=== PATIENT | male | born 2000 | race Caucasian/White ===

== ENCOUNTER 2021-02-11 02:35 | Emergency (ER) | payer OTHER, SELFPAY ==
[2021-02-11 03:22] LABS: Absolute Lymphocytes (CBC) 1.4 K/uL (0.7-4.9); Basophils % 0.3 % (0-1.3); Hematocrit 43.9 % (39.6-49.0); Lymphocytes % 20.5 % (15.3-44.8); MPV 7.9 fL (7.6-11.3); RBC Red Blood Cell Count 4.73 M/uL (4.33-5.43)
[2021-02-11 03:27] LABS: Protime INR 1.09
[2021-02-11] MEDS ORDERED: ONDANSETRON 4 MG/2 ML VIAL ONE (03:38)
[2021-02-11] MEDS ORDERED: THIAMINE 200 MG/2 ML INJ ONE (03:38)
[2021-02-11] MEDS ORDERED: MORPHINE 4 MG/ML SYR ONE (03:38)
[2021-02-11] MEDS ORDERED: NA CHLORIDE 0.9% 1,000 ML ONE ×2 (03:39→03:47)
[2021-02-11] MEDS ORDERED: FAMOTIDINE 20 MG/2 ML VIAL IV ONE (03:39)
[2021-02-11 03:45] LABS: ALT/SGPT 29 U/L (12-78); Albumin 4.6 g/dL (3.4-5.0); Alkaline Phosphatase 68 U/L (45-117); BUN Blood Urea Nitrogen 7 mg/dL (7-18); Bicarbonate 20 mmol/L (21-32); Bilirubin Direct 0.2 mg/dL (0-0.2); Bilirubin Total 0.6 mg/dL (0.2-1.0); Glucose Level 114 mg/dL (74-106); Protein, Total 7.8 g/dL (6.4-8.2); Sodium Level 139 mmol/L (136-145)
[2021-02-11 03:47] LABS: AST/SGOT 25 U/L (15-37); Potassium 3.8 mmol/L (3.5-5.1)
--- NOTE | 2021-02-11 04:22 | EDPHYS ---
Physician Documentation [facility] Name: Jay Oconnor Age: 20 yrs Sex: Male : 2000 Arrival Date: 02/11/2021 Time: 02:39 Bed 20 Private MD: ED Physician Albert Spears HPI: 02/11 03:05 This 20 yrs old Male presents to ER via EMS with complaints of abd pain after cynthia drinking, now clear vomiting. 03:05 The patient presents with abdominal pain in the upper abdomen. Onset: The cynthia symptoms/episode began/occurred last night. The symptoms do not radiate. Associated signs and symptoms: Pertinent positives: nausea and vomiting, Pertinent negatives: diarrhea, dysuria, hematuria, shortness of breath, vomiting blood. The symptoms are described as burning, constant. Modifying factors: The symptoms are alleviated by nothing, the symptoms are aggravated by nothing. Severity of pain: At its worst the pain was mild moderate in the emergency department the pain is unchanged. The patient has not experienced similar symptoms in the past. Historical: - Allergies: 02:54 No Known Allergies; lh3 - PMHx: 02:54 None; lh3 - PSHx: 02:54 None; lh3 - Immunization history:: pt states that he does not know. - Social history:: Smoking status: Patient reports the use of cigarette tobacco products, smokes one pack cigarettes per day. - Family history:: not pertinent. ROS: 03:05 Constitutional: Negative for fever, chills, and weight loss, Eyes: Negative for injury, cynthia pain, redness, and discharge, ENT: Negative for injury, pain, and discharge, Neck: Negative for injury, pain, and swelling, Cardiovascular: Negative for chest pain, palpitations, and edema, Respiratory: Negative for shortness of breath, cough, wheezing, and pleuritic chest pain, Back: Negative for injury and pain, : Negative for injury, bleeding, discharge, and swelling, MS/Extremity: Negative for injury and deformity, Skin: Negative for injury, rash, and discoloration, Neuro: Negative for headache, weakness, numbness, tingling, and seizure, Psych: Negative for depression, anxiety, suicide ideation, homicidal ideation, and hallucinations, Allergy/Immunology: Negative for hives, rash, and allergies, Endocrine: Negative for neck swelling, polydipsia, polyuria, polyphagia, and marked weight changes, Hematologic/Lymphatic: Negative for swollen nodes, abnormal bleeding, and unusual bruising. 03:05 Abdomen/GI: Positive for abdominal pain, nausea and vomiting, abdominal cramps. Exam: 03:05 Head/Face: Normocephalic, atraumatic. Eyes: Pupils equal round and reactive to light, cynthia extra-ocular motions intact. Lids and lashes normal. Conjunctiva and sclera are non-icteric and not injected. Cornea within normal limits. Periorbital areas with no swelling, redness, or edema. ENT: Nares patent. No nasal discharge, no septal abnormalities noted. Tympanic membranes are normal and external auditory canals are clear. Oropharynx with no redness, swelling, or masses, exudates, or evidence of obstruction, uvula midline. Mucous membranes moist. Neck: Trachea midline, no thyromegaly or masses palpated, and no cervical lymphadenopathy. Supple, full range of motion without nuchal rigidity, or vertebral point tenderness. No Meningismus. Chest/axilla: Normal chest wall appearance and motion. Nontender with no deformity. No lesions are appreciated. Cardiovascular: Regular rate and rhythm with a normal S1 and S2. No gallops, murmurs, or rubs. Normal PMI, no JVD. No pulse deficits. Respiratory: Lungs have equal breath sounds bilaterally, clear to auscultation and percussion. No rales, rhonchi or wheezes noted. No increased work of breathing, no retractions or nasal flaring. Back: No spinal tenderness. No costovertebral tenderness. Full range of motion. Male : Normal genitalia with no discharge or lesions. Skin: Warm, dry with normal turgor. Normal color with no rashes, no lesions, and no evidence of cellulitis. MS/ Extremity: Pulses equal, no cyanosis. Neurovascular intact. Full, normal range of motion. Neuro: Awake and alert, GCS 15, oriented to person, place, time, and situation. Cranial nerves II-XII grossly intact. Motor strength 5/5 in all extremities. Sensory grossly intact. Cerebellar exam normal. Normal gait. Psych: Awake, alert, with orientation to person, place and time. Behavior, mood, and affect are within normal limits. 03:05 Abdomen/GI: Inspection: abdomen appears normal, Bowel sounds: normal, Palpation: moderate abdominal tenderness, in the right upper quadrant and left upper quadrant, Liver: no appreciated palpable abnormalities, Hernia: not appreciated. 03:52 ECG was reviewed by the Attending Physician. [facility] Vital Signs: 02:50 BP 122 / 71; Pulse 72; Resp 18; Temp 97.8; Pulse Ox 99% on R/A; Weight 58.97 kg; Height lh3 5 ft. 9 in. (175.26 cm); 02:54 BP 110 / 87; Pulse 72; Resp 18; Pulse Ox 100% on R/A; lh3 04:38 BP 114 / 91; Pulse 88; Resp 18; Pulse Ox 96% on R/A; lh3 02:50 Body Mass Index 19.20 (58.97 kg, 175.26 cm) 3 MDM: 02:41 Patient medically screened. [facility] 03:08 Differential diagnosis: cholecystitis, Cholelithiasis, gastritis, gastroesophageal cynthia reflux disease, GI Bleed, non-specific abd pain, pancreatitis, Peptic Ulcer Disease, Peritonitis, urinary tract infection. Data reviewed: vital signs, nurses notes, lab test result(s), radiologic studies, CT scan. 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 on room air is 100 %. Test interpretation: by ED physician or midlevel provider: ECG, plain radiologic studies. Post IV fluid administration reassessment for Sepsis: Sepsis focused reassessment complete. Counseling: I had a detailed discussion with the patient and/or guardian regarding: the historical points, exam findings, and any diagnostic results supporting the discharge/admit diagnosis, lab results, radiology results, the need for outpatient follow up, for definitive care, 02/11 02:39 Order name: Acetaminophen [facility] 02/11 02:39 Order name: Basic Metabolic Panel [facility] 02/11 02:39 Order name: CBC with Diff [facility] 02/11 02:39 Order name: ETOH Level [facility] 02/11 02:39 Order name: Hepatic Function; Complete Time: 03:52 [facility] 02/11 02:39 Order name: PT-INR; Complete Time: 03:52 [facility] 02/11 02:39 Order name: Ptt, Activated; Complete Time: 03:52 [facility] 02/11 02:39 Order name: Salicylate; Complete Time: 03:52 [facility] 02/11 02:40 Order name: Acetaminophen Level; Complete Time: 03:52 EDMS 02/11 02:40 Order name: Basic Metabolic Panel; Complete Time: 03:52 EDNC 02/11 02:40 Order name: CBC with Automated Diff; Complete Time: 03:52 EDNC 02/11 02:40 Order name: Alcohol Serum/Plasma; Complete Time: 03:52 EDNC 02/11 03:04 Order name: CT Abd/Pelvis - IV Contrast Only [facility] 02/11 02:39 Order name: EKG; Complete Time: 02:40 [facility] 02/11 02:39 Order name: EKG - Nurse/Tech; Complete Time: 03:42 [facility] 02/11 02:39 Order name: IV Saline Lock; Complete Time: 03:42 [facility] 02/11 02:39 Order name: Labs collected and sent; Complete Time: 03:42 [facility] 02/11 02:39 Order name: Suicide Screening ([place]); Complete Time: 03:42 [facility] EC:52 Rate is 61 beats/min. Rhythm is regular. QRS [place] is Normal. CO interval is normal. QRS cynthia interval is normal. QT interval is normal. No Q waves. T waves are Normal. No ST changes noted. Clinical impression: NSR w/ Non-specific ST/T Changes and No evidence of ischemia. Interpreted by me. Reviewed by me. Administered Medications: 03:41 Drug: Zofran (Ondansetron) 4 mg Route: IVP; Site: right forearm; 3 04:40 Follow up: Response: No adverse reaction; Pain is decreased lh3 03:41 Drug: Thiamine 100 mg Route: IV; Rate: per protocol; Site: right forearm; lh3 04:40 Follow up: Response: No adverse reaction; IV Status: Completed infusion lh3 03:41 Drug: morphine 4 mg Route: IVP; Site: right forearm; lh3 04:40 Follow up: Response: No adverse reaction lh3 03:41 Drug: Zofran (Ondansetron) 4 mg Route: IVP; Site: right forearm; lh3 04:40 Follow up: Response: No adverse reaction lh3 03:41 Drug: Pepcid (famotidine) 20 mg Route: IVP; Site: right forearm; lh3 04:40 Follow up: Response: No adverse reaction 3 03:42 Drug: NS 0.9% 1000 ml Route: IV; Rate: 1 bolus; Site: right forearm; lh3 04:40 Follow up: Response: No adverse reaction; IV Status: Completed infusion lh3 Disposition Summary: 02/11/21 04:21 Discharge Ordered Location: Home cynthia Problem: new cynthia Symptoms: have improved cynthia Condition: Stable cynthia Diagnosis - Acute gastritis cynthia - Upper abdominal pain, unspecified cynthia - Vomiting cynthia - Alcoholic gastritis without bleeding cynthia Followup: cynthia - With: Private Physician - When: 2 - 3 days - Reason: Recheck today's complaints, Continuance of care, Re-evaluation by your physician Followup: cynthia - With: - When: 2 - 3 days - Reason: Recheck today's complaints, Re-evaluation by your physician Discharge Instructions: - Discharge Summary Sheet cynthia - Abdominal Pain, Adult cynthia - Gastritis, Adult cynthia - Gastritis, Adult, [id number] cynthia - Abdominal Pain, Adult, [id number] cynthia - Alcohol Use Disorder cynthia - Alcohol Abuse and Nutrition cynthia Forms: - Medication Reconciliation Form cynthia - Thank You Letter cynthia - Antibiotic Education cynthia - Prescription Opioid Use [facility] Prescriptions: - Pepcid 20 mg Oral Tablet - take 1 tablet by ORAL route every 12 hours for 15 days; 30 tablet; Refills: 0, [facility] Product Selection Permitted - Zofran 4 mg Oral Tablet - take 1 tablet by ORAL route every 12 hours As needed; 20 tablet; Refills: 0, [facility] Product Selection Permitted - dicyclomine 20 mg Oral Tablet - take 1 tablet by ORAL route 4 times per day; 28 tablet; Refills: 0, Product [facility] Selection Permitted Signatures: Dispatcher [employer] Albert Engle MD MD cha Hardee, Latisha, RN RN 3
--- NOTE | 2021-02-11 04:22 | ER ---
Nurse's Notes [facility] Name: Jay Oconnor Age: 20 yrs Sex: Male : 2000 Arrival Date: 02/11/2021 Time: 02:39 Bed 20 Private MD: Diagnosis: Acute gastritis;Upper abdominal pain, unspecified;Vomiting;Alcoholic gastritis without bleeding Presentation: 02/11 02:50 Chief complaint: Patient states: that he ate before drinking and shortly after drinking lh3 a [place] started to have N/V/Abdominal Pain. Pt also states that he is struggling to breath. EMS states: that patient had a Four [place] tonight and started to experience nausea, vomiting and abdominal pain after consuming. Coronavirus screen: Vaccine status: Patient reports being unvaccinated. Ebola Screen: No symptoms or risks identified at this time. 02:50 Method Of Arrival: EMS 3 02:50 Initial Sepsis Screen: Does the patient meet any 2 criteria? No. Patient's initial 3 sepsis screen is negative. Does the patient have a suspected source of infection? No. Patient's initial sepsis screen is negative. Risk Assessment: Do you want to hurt yourself or someone else? Patient reports no desire to harm self or others. Onset of symptoms was February 11, 2021. 02:50 Acuity: ANABELA 3 lh3 Triage Assessment: 02:54 General: Appears uncomfortable, Behavior is cooperative, appropriate for age, anxious. lh3 Pain: Complains of pain in abdomen. Historical: - Allergies: 02:54 No Known Allergies; lh3 - PMHx: 02:54 None; lh3 - PSHx: 02:54 None; lh3 - Immunization history:: pt states that he does not know. - Social history:: Smoking status: Patient reports the use of cigarette tobacco products, smokes one pack cigarettes per day. - Family history:: not pertinent. Screenin:57 Abuse screen: Denies threats or abuse. Nutritional screening: No deficits noted. lh3 Tuberculosis screening: No symptoms or risk factors identified. Fall Risk IV access (20 points). Assessment: 02:57 General: Appears uncomfortable, Behavior is cooperative, appropriate for age, anxious. lh3 Pain: Complains of pain in abdomen Also complains of nausea. 04:38 Reassessment: Patient appears in no apparent distress at this time. Patient and/or 3 family updated on plan of care and expected duration. Pain level reassessed. Patient is alert, oriented x 3, equal unlabored respirations, skin warm/dry/pink. Patient states feeling better. Vital Signs: 02:50 BP 122 / 71; Pulse 72; Resp 18; Temp 97.8; Pulse Ox 99% on R/A; Weight 58.97 kg; Height 3 5 ft. 9 in. (175.26 cm); 02:54 BP 110 / 87; Pulse 72; Resp 18; Pulse Ox 100% on R/A; lh3 04:38 BP 114 / 91; Pulse 88; Resp 18; Pulse Ox 96% on R/A; 3 02:50 Body Mass Index 19.20 (58.97 kg, 175.26 cm) [facility] ED Course: 02:39 Patient arrived in ED. cynthia 02:39 Albert Spears MD is Attending Physician. [facility] 02:50 Ashly Fox RN is Primary Nurse. [facility] 02:54 Triage completed. 3 02:54 Arm band placed on right wrist. Patient placed on a stretcher, on teletypesetter monitor, on 3 pulse oximetry. 02:57 Patient has correct armband on for positive identification. Bed in low position. Call [facility] light in reach. Side rails up X 1. Side rails up X2. Door closed. Warm blanket given. Verbal reassurance given. 02:57 No provider procedures requiring assistance completed. Inserted saline lock: 20 gauge lh3 in right forearm, using aseptic technique. 03:42 Acetaminophen Sent. 3 03:42 Basic Metabolic Panel Sent. 3 03:42 CBC with Diff Sent. 3 03:42 ETOH Level Sent. 3 04:12 CT Abd/Pelvis - IV Contrast Only In Process Unspecified. EDMS 04:21 Ashley Hardwick MD is Referral Physician. [facility] 05:00 IV discontinued, intact, bleeding controlled, No redness/swelling at site. Pressure 3 dressing applied. Administered Medications: 03:41 Drug: Zofran (Ondansetron) 4 mg Route: IVP; Site: right forearm; 3 04:40 Follow up: Response: No adverse reaction; Pain is decreased [facility] 03:41 Drug: Thiamine 100 mg Route: IV; Rate: per protocol; Site: right forearm; lh3 04:40 Follow up: Response: No adverse reaction; IV Status: Completed infusion lh3 03:41 Drug: morphine 4 mg Route: IVP; Site: right forearm; lh3 04:40 Follow up: Response: No adverse reaction lh3 03:41 Drug: Zofran (Ondansetron) 4 mg Route: IVP; Site: right forearm; lh3 04:40 Follow up: Response: No adverse reaction lh3 03:41 Drug: Pepcid (famotidine) 20 mg Route: IVP; Site: right forearm; lh3 04:40 Follow up: Response: No adverse reaction lh3 03:42 Drug: NS 0.9% 1000 ml Route: IV; Rate: 1 bolus; Site: right forearm; lh3 04:40 Follow up: Response: No adverse reaction; IV Status: Completed infusion 3 Outcome: 04:21 Discharge ordered by MD. marie 05:00 Discharged to home ambulatory. 3 05:00 Condition: good 05:00 Discharge instructions given to patient, Instructed on discharge instructions, medication usage, Demonstrated understanding of Prescriptions given X 3. 06:25 Patient left the ED. 3 Signatures: Dispatcher [employer] EDAlbert Ann MD MD cha Hardee, Latisha, RN RN 3
[2021-02-11 06:32] VITALS: TEMP 97.8
[2021-02-11 06:34] VITALS: BP 114/91; O2SAT 96
--- NOTE | 2021-02-11 11:04 | RAD REPORT ---
EXAM DESCRIPTION: CT - Abdomen Pelvis W Contrast - 02/11/2021 6:24 am COMPARISON: None. CLINICAL HISTORY: ABD PAIN TECHNIQUE: CT of the abdomen and pelvis was acquired with IV contrast material. Coronal and sagitt al reconstructions were obtained. Automated exposure control was utilized on this examination as a dose lowering technique. FINDINGS: Lung bases: Clear. Liver: Normal. Gallbladder and biliary: Normal gallbladder. Unremarkable biliary tree. Pancreas: Normal. Spleen: Normal. Adrenal glands: Normal adrenal glands. Kidneys: Normal kidneys Stomach and Small Bowel: The stomach and small bowel are normal. Urinary bladder: Normal. Prostate/Male Urogenital: Normal. Colon and Appendix: The colon is unremarkable. No evidence of appendicitis. Retroperitoneum and lymph nodes: Normal. Vascular: Unremarkable. Peritoneal cavity: Trace pelvic fluid is noted. Musculoskeletal and soft tissues: Soft tissues are unremarkable. No aggressive bone lesions. No com pression fracture. IMPRESSION: No acute intra-abdominal abnormality. Electronically signed by: Dewayne Maharaj MD 02/11/2021 4:38 AM CDT Due to temporary technical issues with the PACS/Fluency reporting system, reports are being signed by the in house radiologist without review as a courtesy to ensure prompt reporting. The interpreting r adiologist is fully responsible for the content of the report.
--- NOTE | 2021-02-11 16:37 | EKG ---
Test Date: 2021-02-11 Test Time: 03:32:17 Medication Aide: TRANG MEASUREMENT RESULTS: Intervals: Rate: 61 AL: 164 QRSD: 104 QT: 442 QTc: 444 [place]: P: 68 AL: 164 QRS: 65 T: 65 INTERPRETIVE STATEMENTS: Sinus rhythm with marked sinus arrhythmia Possible Lateral infarct, age undetermined Abnormal ECG Compared to ECG 02/11/2021 03:31:45 Sinus bradycardia no longer present Myocardial infarct finding still present Electronically Signed On 02-11-21 16:35:34 CDT by Ozzy Hugo
== END 2021-02-11 06:25 | disposition home or self-care (01) ==
LOC: ER 02:35
DX: K29.20 Alcoholic gastritis without bleeding (principal); R11.10 Vomiting, unspecified; F17.210 Nicotine dependence, cigarettes, uncomplicated
CPT/HCPCS: 36415; 74177; 80048; 80076; 80320; 80329; 85025; 85610; 85730; 93005; 96365; 96375; 99284; J2405; J3411; J7030; Q9967

== ENCOUNTER 2021-10-06 04:18 | Inpatient (IN) | payer SELFPAY ==
[2021-10-06 05:09] LABS: Absolute Lymphocytes (CBC) 2.1 K/uL (0.7-4.9); Lymphocytes % 28.8 % (15.3-44.8); RBC Red Blood Cell Count 4.46 M/uL (4.33-5.43)
[2021-10-06] MEDS ORDERED: MORPHINE 4 MG/ML SYR ONE (05:27)
[2021-10-06] MEDS ORDERED: PROMETHAZINE INJ 25 MG/ML AMP ONE (05:27)
[2021-10-06] MEDS ORDERED: NA CHLORIDE 0.9% 1,000 ML ONE ×2 (05:27→07:58)
[2021-10-06 05:41] LABS: Albumin 3.7 g/dL (3.4-5.0); Bilirubin Total 0.4 mg/dL (0.2-1.0); Potassium 3.7 mmol/L (3.5-5.1); Protein, Total 6.7 g/dL (6.4-8.2)
--- NOTE | 2021-10-06 08:22 | RAD REPORT ---
EXAM DESCRIPTION: US - Abdomen Exam Limited - 10/06/2021 7:49 am CLINICAL HISTORY: RUQ pain COMPARISON: Abdomen Pelvis W Contrast dated 10/06/2021 FINDINGS: Gallbladder size is normal with no stones or sludge identifiable within the lumen. Gallbla dder wall thickness is upper normal to slightly thickened. Small amount of pericholecystic fluid is p resent. No common duct stone or biliary tree dilatation identified. IMPRESSION: Gallbladder wall is upper normal is slightly thickened with pericholecystic fluid presen t. Biliary tree is unremarkable. No stones or sludge identifiable. Acalculous cholecystitis is possible in the acute clinical setting .
--- NOTE | 2021-10-06 08:28 | EDPHYS ---
Physician Documentation [facility] [place] Name: Jay cOonnor Age: 20 yrs Sex: Male : 2000 Arrival Date: 10/06/2021 Time: 04:21 Bed 18 Private MD: ED Physician Raleigh Moreira HPI: 10/06 05:22 This 20 yrs old Male presents to ER via EMS with complaints of Nausea.Vomiting. mh7 Abdominal Cramps. 05:22 The patient presents to the emergency department with nausea, that is moderate, mh7 vomiting, that is intermittent, described as clear fluid, diarrhea, that is intermittent, abdominal pain, of the umbilical area, described as crampy, intermittent, waxing and waning, and does not radiate. Onset: The symptoms/episode began/occurred this morning, at 03:30. Possible causes: bad food exposure, possibly bad restaurant food. The symptoms are aggravated by nothing. The symptoms are alleviated by nothing. Associated signs and symptoms: Pertinent negatives: anorexia, belching, constipation, dysuria, fever, flatulence, GI bleeding, hematuria. Severity of symptoms: At their worst the symptoms were moderate today, in the emergency department the symptoms have improved moderately. Historical: - Allergies: 04:26 No Known Allergies; ll3 - Home Meds: 04:26 None [Active]; ll3 - PMHx: 04:26 None; ll3 - PSHx: 04:26 None; ll3 - Immunization history:: Client reports having NOT received the Covid vaccine. - Social history:: Smoking status: Reported history of juuling and/or vaping. ROS: 05:22 Constitutional: Negative for fever, chills, and weight loss, Eyes: Negative for injury, mh7 pain, redness, and discharge, ENT: Negative for injury, pain, and discharge, Neck: Negative for injury, pain, and swelling, Cardiovascular: Negative for chest pain, palpitations, and edema, Respiratory: Negative for shortness of breath, cough, wheezing, and pleuritic chest pain, Back: Negative for injury and pain, : Negative for injury, bleeding, discharge, and swelling, MS/Extremity: Negative for injury and deformity, Skin: Negative for injury, rash, and discoloration, Neuro: Negative for headache, weakness, numbness, tingling, and seizure, Psych: Negative for depression, anxiety, suicide ideation, homicidal ideation, and hallucinations, Allergy/Immunology: Negative for hives, rash, and allergies, Endocrine: Negative for neck swelling, polydipsia, polyuria, polyphagia, and marked weight changes, Hematologic/Lymphatic: Negative for swollen nodes, abnormal bleeding, and unusual bruising. Exam: 05:22 Head/Face: Normocephalic, atraumatic. Eyes: Pupils equal round and reactive to light, mh7 extra-ocular motions intact. Lids and lashes normal. Conjunctiva and sclera are non-icteric and not injected. Cornea within normal limits. Periorbital areas with no swelling, redness, or edema. Neck: Trachea midline, no thyromegaly or masses palpated, and no cervical lymphadenopathy. Supple, full range of motion without nuchal rigidity, or vertebral point tenderness. No Meningismus. Chest/axilla: Normal chest wall appearance and motion. Nontender with no deformity. No lesions are appreciated. Cardiovascular: Regular rate and rhythm with a normal S1 and S2. No gallops, murmurs, or rubs. Normal PMI, no JVD. No pulse deficits. Respiratory: Lungs have equal breath sounds bilaterally, clear to auscultation and percussion. No rales, rhonchi or wheezes noted. No increased work of breathing, no retractions or nasal flaring. Back: No spinal tenderness. No costovertebral tenderness. Full range of motion. Skin: Warm, dry with normal turgor. Normal color with no rashes, no lesions, and no evidence of cellulitis. MS/ Extremity: Pulses equal, no cyanosis. Neurovascular intact. Full, normal range of motion. Neuro: Awake and alert, GCS 15, oriented to person, place, time, and situation. Cranial nerves II-XII grossly intact. Motor strength 5/5 in all extremities. Sensory grossly intact. Cerebellar exam normal. Normal gait. Psych: Awake, alert, with orientation to person, place and time. Behavior, mood, and affect are within normal limits. 05:22 Constitutional: The patient appears in no acute distress, alert, awake, uncomfortable. Vital Signs: 04:22 BP 128 / 80; Pulse 52; Resp 17; Temp 97.9(O); Pulse Ox 99% on R/A; Weight 58.97 kg (R); ll3 Height 5 ft. 10 in. (177.80 cm) (R); Pain 6/10; 06:00 BP 103 / 72; Pulse 62; Resp 18; Pulse Ox 99% on R/A; ll3 07:45 BP 107 / 69; Pulse 77; Resp 18; Pulse Ox 99% on R/A; ww 04:22 Body Mass Index 18.65 (58.97 kg, 177.80 cm) ll3 MDM: 07:07 Patient medically screened. rn 07:16 ED course: Signed out to me by Dr. Garnica at shift change, plan is to get u/s and dc rn home if normal. . 08:27 Differential diagnosis: Nonspecific abd pain, gastritis, cholecystitis, pancreatitis. rn Data reviewed: vital signs, nurses notes, lab test result(s), radiologic studies, CT scan, ultrasound, and as a result, I will admit patient. Counseling: I had a detailed discussion with the patient and/or guardian regarding: the historical points, exam findings, and any diagnostic results supporting the discharge/admit diagnosis, lab results, radiology results, the need for further work-up and treatment in the hospital. Response to treatment: the patient's symptoms have mildly improved after treatment, and as a result, I will admit patient. Admission orders: after a detailed discussion of the patient's condition and case, the admit orders are written by me. 10/06 04:39 Order name: CBC with Diff; Complete Time: 05:12 [facility] 10/06 04:39 Order name: CMP; Complete Time: 05:46 [facility] 10/06 04:39 Order name: Lipase; Complete Time: 05:46 [facility] 10/06 05:13 Order name: CT Abd/Pelvis - IV Contrast Only [facility] 10/06 08:37 Order name: SARS-COV-2 RT PCR (Document "Date of Onset" if Symptomatic) rn 10/06 12:43 Order name: SARS-COV-2 RT PCR [facility] 10/06 04:39 Order name: IV Saline Lock; Complete Time: 05:00 [facility] 10/06 07:06 Order name: US Abdomen Limited; Complete Time: 08:[address] [facility] 10/06 10:14 Order name: Diet Clear Liquid; Complete Time: 10:14 10/06 04:39 Order name: Labs collected and sent; Complete Time: 05:00 ll3 Administered Medications: 05:35 Drug: NS 0.9% 1000 ml Route: IV; Rate: 1000 ml; Site: left forearm; ll3 06:45 Follow up: Response: No adverse reaction; IV Status: Completed infusion; IV Intake: ll3 1000ml 05:38 Drug: Phenergan (promethazine) 12.5 mg Route: IVP; Site: left forearm; ll3 06:43 Follow up: Response: No adverse reaction ll3 05:45 Drug: morphine 4 mg Route: IVP; Infused Over: 4 mins; Site: left forearm; ll3 06:43 Follow up: Response: No adverse reaction ll3 08:04 Drug: NS 0.9% 1000 ml Route: IV; Rate: 1000 ml; Site: left forearm; ww 08:40 Drug: Zosyn (piperacillin-tazobactam) 3.375 grams Route: IVPB; Infused Over: 60 mins; ww Site: left forearm; Disposition Summary: 10/06/21 08:27 Hospitalization Ordered Hospitalization Status: Observation rn Provider: Jeremiah Le rn [facility] Condition: Stable rn Problem: new rn Symptoms: have improved rn Bed/Room Type: Standard rn Room Assignment: [facility](10/06/21 14:03) dw Diagnosis - Acute cholecystitis rn Forms: - Medication Reconciliation Form rn - SBAR form rn Signatures: Dispatcher [employer] Danielle Paulino RN RN Raleigh Serrato MD MD rn Holmes, Maurice, MD MD Lulu Stratton RN RN Senait Nunez RN RN ww Corrections: (The following items were deleted from the chart) 14:03 08:27 penny esparza
--- NOTE | 2021-10-06 08:28 | ER ---
Nurse's Notes [facility] Name: Jay Oconnor Age: 20 yrs Sex: Male : 2000 Arrival Date: 10/06/2021 Time: 04:21 Bed 18 Private MD: Diagnosis: Acute cholecystitis Presentation: 10/06 04:22 Chief complaint: EMS states: Toned out for nausea and vomiting, c/o cramping, chills, ll3 and nausea, states started around 0330. Coronavirus screen: Vaccine status: Patient reports being unvaccinated. chills, nausea, shaking with chills, vomiting. Ebola Screen: No symptoms or risks identified at this time. Initial Sepsis Screen: Does the patient meet any 2 criteria? No. Patient's initial sepsis screen is negative. Does the patient have a suspected source of infection? No. Patient's initial sepsis screen is negative. Risk Assessment: Do you want to hurt yourself or someone else? Patient reports no desire to harm self or others. Onset of symptoms was October 06, 2021 at 03:30. Care prior to arrival: Medication(s) given: Phenergan, 12.5 mg, zofran 4 mg, IV initiated. 20 GA, in the left forearm. Activity prior to arrival: vomiting. 04:22 Method Of Arrival: EMS: [facility] 04:22 Acuity: ANABELA 3 ll3 Triage Assessment: 04:26 General: Appears ill, Behavior is cooperative, Reports chills for 0-12 hours, feeling ll3 ill for 0-12 hours. Pain: Complains of pain in abdomen Quality of pain is described as crampy, Pain began 1 hour ago. Is continuous. Neuro: No deficits noted. Respiratory: Respiratory effort is even, unlabored, Respiratory pattern is regular, symmetrical. GI: Reports cramping, nausea, vomiting, since 0330. Derm: Skin is clammy. Historical: - Allergies: 04:26 No Known Allergies; ll3 - Home Meds: 04:26 None [Active]; ll3 - PMHx: 04:26 None; ll3 - PSHx: 04:26 None; ll3 - Immunization history:: Client reports having NOT received the Covid vaccine. - Social history:: Smoking status: Reported history of juuling and/or vaping. Screenin:28 Abuse screen: Denies threats or abuse. Nutritional screening: No deficits noted. ll3 Tuberculosis screening: No symptoms or risk factors identified. Fall Risk No fall in past 12 months (0 pts). No secondary diagnosis (0 pts). IV access (20 points). Ambulatory Aid- None/Bed Rest/Nurse Assist (0 pts). Gait- Normal/Bed Rest/Wheelchair (0 pts) Mental Status- Oriented to own ability (0 pts). Total Chavarria Fall Scale indicates No Risk (0-24 pts). Assessment: 04:28 General: See triage assessment. ll3 05:30 Reassessment: Patient and/or family updated on plan of care and expected duration. Pain ll3 level reassessed. Patient is alert, oriented x 3, equal unlabored respirations, skin warm/dry/pink. Patient states symptoms have not improved. 06:42 Reassessment: Patient and/or family updated on plan of care and expected duration. Pain ll3 level reassessed. Patient is alert, oriented x 3, equal unlabored respirations, skin warm/dry/pink. Patient states feeling better. Patient states symptoms have improved. 07:40 General: Appears comfortable, Behavior is cooperative. Pain: Complains of pain in ww abdomen. Neuro: Level of Consciousness is awake, alert, obeys commands, Oriented to person, place, time, situation, Moves all extremities. Speech is normal. Respiratory: Airway is patent Respiratory effort is even, unlabored, Respiratory pattern is regular, symmetrical. GI: Abdomen is non-distended, Reports upper abdominal pain. Derm: Skin is intact, is healthy with good turgor. Vital Signs: 04:22 BP 128 / 80; Pulse 52; Resp 17; Temp 97.9(O); Pulse Ox 99% on R/A; Weight 58.97 kg (R); ll3 Height 5 ft. 10 in. (177.80 cm) (R); Pain 6/10; 06:00 BP 103 / 72; Pulse 62; Resp 18; Pulse Ox 99% on R/A; ll3 07:45 BP 107 / 69; Pulse 77; Resp 18; Pulse Ox 99% on R/A; ww 04:22 Body Mass Index 18.65 (58.97 kg, 177.80 cm) ll3 ED Course: 04:21 Patient arrived in ED. ll3 04:22 Lulu Heart, NILESH is Primary Nurse. ll3 04:25 Triage completed. ll3 04:26 Arm band placed on Patient placed in an exam room, on a stretcher, on pulse oximetry. ll3 04:28 Patient has correct armband on for positive identification. Bed in low position. Call ll3 light in reach. Side rails up X 1. Adult w/ patient. 04:28 Maintain EMS IV. Dressing intact. Good blood return noted. Site clean \\T\\ dry. Gauge \\T\\ ll 3 site: 20 G LFA. 04:32 Mau Garnica MD is Attending Physician. 7 05:00 Initial lab(s) drawn, by mt, sent to lab. ll3 06:13 CT Abd/Pelvis - IV Contrast Only In Process Unspecified. EDMS 07:07 Attending Physician role handed off by Mau Garnica MD rn 07:07 Raleigh Moreira MD is Attending Physician. rn 07:51 US Abdomen Limited In Process Unspecified. EDMS 08:27 Jeremiah Le MD is Hospitalizing Provider. rn 09:06 SARS-COV-2 RT PCR (Document "Date of Onset" if Symptomatic) Sent. ww Administered Medications: 05:35 Drug: NS 0.9% 1000 ml Route: IV; Rate: 1000 ml; Site: left forearm; ll3 06:45 Follow up: Response: No adverse reaction; IV Status: Completed infusion; IV Intake: ll3 1000ml 05:38 Drug: Phenergan (promethazine) 12.5 mg Route: IVP; Site: left forearm; ll3 06:43 Follow up: Response: No adverse reaction ll3 05:45 Drug: morphine 4 mg Route: IVP; Infused Over: 4 mins; Site: left forearm; ll3 06:43 Follow up: Response: No adverse reaction ll3 08:04 Drug: NS 0.9% 1000 ml Route: IV; Rate: 1000 ml; Site: left forearm; ww 08:40 Drug: Zosyn (piperacillin-tazobactam) 3.375 grams Route: IVPB; Infused Over: 60 mins; ww Site: left forearm; Intake: 06:45 IV: 1000ml; Total: 1000ml. ll3 Outcome: 08:27 Decision to Hospitalize by Provider. rn 15:33 Patient left the ED. ww Signatures: Dispatcher [employer] EDRaleigh Villalba MD MD rn Holmes, Maurice, MD MD 7 Lulu Heart RN RN 3 Senait Rhodes RN RN ww Corrections: (The following items were deleted from the chart) 06:46 06:42 Reassessment: Patient and/or family updated on plan of care and expected ll3 duration. Pain level reassessed. Patient is alert, oriented x 3, equal unlabored respirations, skin warm/dry/pink. ll3
[2021-10-06] MEDS ORDERED: NA CHLORIDE 0.9% 100 ML ONE (08:39)
[2021-10-06] MEDS ORDERED: PIPERACIL/TAZO 3.375 GM VIAL IV ONE (08:39)
--- NOTE | 2021-10-06 09:36 | RAD REPORT ---
EXAM DESCRIPTION: CT - Abdomen Pelvis W Contrast - 10/06/2021 7:13 am CLINICAL HISTORY: 20 years Male Abdominal pain, acute, nonlocalized TECHNIQUE: Axial CT imaging of the abdomen and pelvis was performed following the administration of intravenous contrast.. Oral contrast was not administered. Sagittal and coronal reconstructed image s were then performed. The CT study is performed according to ALARA (as low as reasonably achievabl e) or ALARA/IMAGE GENTLY, with automatic adjustment of mA and/or kV according to patient size. Performed on: 10/06/2021 at 6:05 AM. COMPARISON: 02/11/2021 FINDINGS: Limitations: There is some streak artifact on the images related to the patient's arms rell ng down by his side during scanning. This does result in slight degradation of image quality. Lung bases: The lung bases are clear. Liver: The liver is normal in size and configuration. No focal hepatic abnormalities are identified. Liver attenuation is within normal limits. The portal veins are patent. Spleen: The spleen is normal in size. There is a heterogeneous appearance of the spleen during the ar terial phase images likely due to flow related phenomenon. The spleen is homogeneous and appearance o n the venous phase images. Gallbladder and bile duct: The gallbladder is well distended and unremarkable. There is evidence of pericholecystic fluid There is no biliary ductal dilatation. Pancreas: The pancreas is grossly normal in size and configuration. Adrenal Glands: The adrenal glands are normal in size and configuration. Kidneys: The kidneys are normal in size and configuration. There is no evidence of hydronephrosis. Th ere is no evidence of nephrolithiasis. No definite solid or cystic renal mass lesions are identified. Stomach: The stomach is grossly normal. There is no definite hiatal hernia. Bowel: The bowel gas pattern is non specific and non obstructive. Appendix: The appendix is normal. Free air: There is no evidence of free air. Free fluid: There is a trace amount of free fluid in the gallbladder fossa and pelvis. Vasculature: The aorta is normal in caliber and contour. The inferior vena cava is grossly unremarkab le. Lymphadenopathy: No pathologic lymphadenopathy is identified. Bladder: The bladder is well distended and smooth in contour. Reproductive: The prostate gland is grossly within normal limits. Bones: No acute osseous abnormalities are identified. Soft tissues: No acute soft tissue abnormalities are identified. IMPRESSION: 1. Pericholecystic fluid. Underlying acute gallbladder pathology is not excluded. Ther e is also a trace amount of free fluid in the pelvis. 2. Otherwise, no evidence of acute intra-abdominal or intrapelvic pathology. There is no evidence o f bowel obstruction or other acute bowel pathology. 3. There is some streak artifact on the images related to the patient's arms being down by his side during scanning. This does result in slight degradation of image quality. Electronically signed by: Vivi Pavon DO 10/06/2021 7:00 AM CDT Due to temporary technical issues with the PACS/Fluency reporting system, reports are being signed by the in house radiologists without review as a courtesy to insure prompt reporting. The interpreting radiologist is fully responsible for the content of the report.
[2021-10-06] MEDS: D5 0.45 NS 1,000 ML IV SCH ×2 (11:20→19:20)
[2021-10-06] MEDS ORDERED: ONDANSETRON 4 MG/2 ML VIAL IV PRN (11:20)
[2021-10-06] MEDS ORDERED: MORPHINE 4 MG/ML SYR IV PRN (11:20)
[2021-10-06 11:31] VITALS: BMI 17.7
[2021-10-06] MEDS: PIPER TAZO 3.375 GM in NA CHLORIDE 0.9% 100 ML IV SCH ×2 (12:00→22:14)
[2021-10-06] MEDS ORDERED: D5 0.45 NS 1,000 ML IV ONE (13:16)
--- NOTE | 2021-10-06 14:53 | HP ---
Date of Admission: 10/06/2021 Reason For Service: Acute cholecystitis, acalculous cholecystitis. History Of Present Illness: This is the case of a 20-year-old patient, who comes to us with nausea, vomiting and diarrhea after eating some hot dogs. Pain was significant to the point I was called for admission. He denies any trauma, any dysuria, hematuria, hematochezia, melena. [place]. Denies any family member sick at home. In fact, in an hour or two [facility] e the patient was evaluated by the ER and now the patient says that suddenly the symptoms improved. Allergies: NONE. Past Medical History: None. Medications: None. Past Surgical History: Surgeries none. Social History: He does Vape and also he says he probably consumes a lot of energy drink, sometimes 4 within an hour. He was advised the importance of smoking cessation, also the importance of not angel ing those energy drinks. Review of Systems: At this moment; no nausea, no vomiting. Some mild abdominal pain. The patient had diarrhea before c oming here. Physical Examination: General: The patient is awake, alert. HEENT: Pupils are equal and reactive. Anicteric. Neck: Supple. Chest: Clear. Heart: S1, S2. Abdomen: Soft and depressible. No guarding or rebound. No peritoneal signs. Mild epigastric tende rness, but no peritonitis. Extremities: Good capillary refill. Laboratory Data: Blood work shows WBC count of 7, hemoglobin of 13.4, potassium 3.7, total bilirubin of 0.4. CAT scan of the abdomen and pelvis and ultrasound interpreted by Dr. Lai as findings po ssibly consistent with acalculous cholecystitis. Assessment And Plan: This is the case of a 20-year-old patient with calculous cholecystitis. He is improving. He wants to try conservative treatment since just a few minutes ago the pain got relieved . We are going to trying to advance diet on him. He understands the options of laparoscopic possibl e open cholecystectomy with benefits, alternatives, and risks that were fully explained to him, altho ugh he wants to try conservative treatment and also improve his diet and social habits. We are going to start diet today. If he improves, then we will eventually send him home on antibiotics. If he g ets worse, then he has the options that we discussed with him that may include surgical options. SOPHIA Voice ID: [id number]
[2021-10-07] MEDS: D5 0.45 NS 1,000 ML IV SCH (03:20)
[2021-10-07] MEDS: PIPER TAZO 3.375 GM in NA CHLORIDE 0.9% 100 ML IV SCH (03:51)
[2021-10-07 04:17] VITALS: O2SAT 98
[2021-10-07 04:54] LABS: Absolute Lymphocytes (CBC) 1.9 K/uL (0.7-4.9); Hematocrit 38.8 % (39.6-49.0); Lymphocytes % 47.4 % (15.3-44.8); MPV 7.4 fL (7.6-11.3)
[2021-10-07 05:23] LABS: Albumin 3.2 g/dL (3.4-5.0); Bilirubin Direct 0.2 mg/dL (0-0.2); Bilirubin Total 0.6 mg/dL (0.2-1.0); Potassium 3.9 mmol/L (3.5-5.1); Protein, Total 5.9 g/dL (6.4-8.2)
[2021-10-07 08:20] VITALS: BP 121/69; TEMP 97.7
[2021-10-07] MEDS ORDERED: NICOTINE 21 MG/PAT TD SCH (09:00)
== END 2021-10-07 08:47 | disposition home or self-care (01) | DRG 446 ==
LOC: ER 04:18 → ERHOLD 08:32 → OBSVTOIN 08:32 → 2ND 15:14 → INTOOBSV 20:29 → OBSVTOIN 20:29
PROVIDERS: ADMIT Surgery; ATTEND Surgery
DX: K81.0 Acute cholecystitis (principal); F17.290 Nicotine dependence, other tobacco product, uncomplicated; Z20.822 Contact with and (suspected) exposure to COVID-19
CPT/HCPCS: 36415; 74177; 76705; 80048; 80053; 80076; 83690; 85025; 96361; 96374; 96375; 99284; J2543; J2550; J7030; J7799; Q9967; U0003

== ENCOUNTER 2023-10-10 20:02 | Emergency (ER) | payer OTHER, SELFPAY ==
--- OUTSIDE RECORDS SUMMARY | 2023-10-10 20:06 | XMS REPORT | Continuity of Care Document ---
Author Name Unknown Address [address] [facility]. [address] th[address] Address [address] [facility]. 1 495 [place] [address] Care Team Providers Care Sas Administrator Name Role Phone PUJA LADD Attending Clinician Unavailable RICHARD HODGES Attending Clinician UnavailELEN Back Attending Clinician Unavail le Payers Payer Name Policy Type Policy Number Effective Date Expirati on Date Source AETNA MP [facility] O [employer] 94 ON 9 [id number] 2023 00:00:00 Problems Condition Name Condition Details Condition Category Status Onset Date Resolution Date Last Treatment Date Treating Clinician Comments Source Mild major depression Mild major depression Disease Active 610 00:00: 00 Alexa lizarraga Tobacco use disorder Tobacco use disorder Disease Active 08-23 00:00: 00 Alexa lizarraga Social History Social Habit Start Date Stop Date Quantity Comments Source History of tobacco use Cigarette Smoker Alexa coffman - External Sexual orientation Bg Vela - External History of Social function 2023-08-24 00:00:00 2023-08-24 00:00:00 Alexa Vela - External Sex assigned at 2000 00:00:00 2000 00:00:00 Alexa Vela - External Smoking Status Start Date Stop Date Source Smokes tobacco daily 2023-08-24 00:00:00 Alexa Vela - External Medications Ordered Medication Name Filled Medication Name Start Date Stop Date Current Medication? Ordering Clinician Indication Dosage Frequency Signature (SIG) Comments Components Source Sertraline HCl 50 MG oral Tablet 10-09 00:00: 00 Yes [id number] 50mg Take 1 tablet (50 mg total) by mouth daily. Alexa Vela - Externa l Baclofen 10 MG oral Tablet 10-06 00:00: 00 Yes [id number] 10mg Take 1 tablet (10 mg total) by mouth nightly. Alexa Vela - Externa l Albuterol HFA 108 (90 Base) MCG/ACT IN AERS 08-23 00:00: 00 Yes [id number] 2{puff} Q.25D Inhale 2 puffs into the lungs every 6 hours as needed for wheezing. Alexa Nelson Externa l Immunizations Ordered Immunization Name Filled Immunization Name Date Status Comments Source DTaP Unspecified Unknown Completed Bruce lee Seybold - External DTaP Unspecified Unknown Completed Bruce lee Seybold - External DTaP Unspecified Unknown Completed Bruce lee Seybold - External DTaP Unspecified Unknown Completed Bruce lee Seybold - External DTaP Unspecified Unknown Completed Bruce lee Seybold - External Influenza, Seasonal, Injectable Unknown Completed Alexa Anthonyold - External Influenza, Seasonal, Injectable Unknown Completed Alexa ybold - External Influenza, Seasonal, Injectable Unknown Completed Alexa Anthonyybold - External Hepatitis B, Adolescent Or Pediatric Unknown Completed Alexa Anthonyybold - External Hepatitis B, Adolescent Or Pediatric Unknown Completed Alexa Anthonyybold - External Hepatitis B, Adolescent Or Pediatric Unknown Completed Alexa Anthonyybold - External Hepatitis B, Adolescent Or Pediatric Unknown Completed Alexa Anthonyybold - External HIB- Haemophilus Influenzae Type B Unknown Completed Alexa Lee bold - External HIB- Haemophilus Influenzae Type B Unknown Completed Alexa Lee bold - External HIB- Haemophilus Influenzae Type B Unknown Completed Alexa Lee bold - External MMR- Measles, Mumps, Rubella Unknown Completed Alexa Seybold - External MMR- Measles, Mumps, Rubella Unknown Completed Alexa Seybold - External IPV- Inactivated Polio Vaccine Unknown Completed Alexa Anthonyybold - External IPV- Inactivated Polio Vaccine Unknown Completed Alexa Anthonyybold - External IPV- Inactivated Polio Vaccine Unknown Completed Alexa Anthonyybold - External IPV- Inactivated Polio Vaccine Unknown Completed Alexa Seybold - External Varicella Vaccine Unknown Completed Zak onrelas Seybold - External DTaP Unspecified Unknown Completed Bruce anthonyy Seybold - External DTaP Unspecified Unknown Completed Bruce anthonyy Seybold - External DTaP Unspecified Unknown Completed Bruce anthonyy Seybold - External DTaP Unspecified Unknown Completed Bruce anthonyy Seybold - External DTaP Unspecified Unknown Completed Bruce lee Seybold - External Influenza, Seasonal, Injectable Unknown Completed Alexa Seybold - External Influenza, Seasonal, Injectable Unknown Completed Alexa Seybold - External Influenza, Seasonal, Injectable Unknown Completed Alexa Seybold - External Hepatitis B, Adolescent Or Pediatric Unknown Completed Alexa Seybold - External Hepatitis B, Adolescent Or Pediatric Unknown Completed Alexa Seybold - External Hepatitis B, Adolescent Or Pediatric Unknown Completed Alexa Seybold - External Hepatitis B, Adolescent Or Pediatric Unknown Completed Alexa Seybold - External HIB- Haemophilus Influenzae Type B Unknown Completed Alexa Lee bold - External HIB- Haemophilus Influenzae Type B Unknown Completed Alexa Lee bold - External HIB- Haemophilus Influenzae Type B Unknown Completed Alexa Lee bold - External MMR- Measles, Mumps, Rubella Unknown Completed Alexa Seybold - External MMR- Measles, Mumps, Rubella Unknown Completed Alexa Seybold - External IPV- Inactivated Polio Vaccine Unknown Completed Alexa Seybold - External IPV- Inactivated Polio Vaccine Unknown Completed Alexa Seybold - External IPV- Inactivated Polio Vaccine Unknown Completed Alexa Seybold - External IPV- Inactivated Polio Vaccine Unknown Completed Alexa Seybold - External Varicella Vaccine Unknown Completed Zak ornelas Seybold - External Vital Signs Vital Name Observation Time Observation Value Comments S ource Systolic blood pressure 2023-08-24 18:11:00 104 mm[Hg] Alexa Anthonyybo ld - External Diastolic blood pressure 2023-08-24 18:11:00 66 mm[Hg] Alexa Anthonyybo ld - External Heart rate 2023-08-24 18:11:00 86 /min Brucese steven Seybold - External Body temperature 2023-08-24 18:11:00 36.67 Leah Alexa Seybold - External Respiratory rate 2023-08-24 18:11:00 18 /min Alexa Seybold - External Body height 2023-08-24 18:11:00 174 cm Pat arlene Seybold - External Body weight 2023-08-24 18:11:00 55.339 kg Pat Crabtreeold - External BMI 2023-08-24 18:11:00 18.28 kg/m2 Pat Crabtreeold - External Oxygen saturation in Arterial blood by Pulse oximetry 2023-08-24 18:11:00 99 /min Alexa codie ld - External Plan of Care Planned Activity Planned Date Details Comments Source Encounters Start Date/Time End Date/Time Encounter Type Admission Type Attending [facility] Facility Care Department Encounter ID Source 2023-10-24 10:15:00 2023-10-24 10:15:00 Outpatient PUJA LADD [id number] [facility] 2023-10-10 09:00:00 2023-10-10 09:00:00 Outpatient RICHARD HODGES [id number] [facility] 2023-10-07 00:00:00 2023-10-07 00:00:00 Outpatient ELEN KWON [id number] [facility] 2023-10-05 00:00:00 2023-10-05 00:00:00 Outpatient PUJA LADD [id number] [facility] 2023-10-03 00:00:00 2023-10-03 00:00:00 Outpatient ELEN KWON [id number] [facility] 2023-10-02 00:00:00 2023-10-02 00:00:00 Outpatient PUJA LADD [id number] [facility] 2023-09-27 12:30:00 2023-09-27 12:30:00 Outpatient ALEXA LIU [id number] [facility] 2023-09-27 12:25:00 2023-09-27 12:25:00 Outpatient ALEXA LIU [id number] [facility] 2023-09-23 13:30:00 2023-09-23 13:30:00 Outpatient ELEN KWON [id number] [facility] 2023-09-23 00:00:00 2023-09-23 00:00:00 Outpatient ELEN KWON [id number] Alexa [facility] 2023-08-24 13:30:00 2023-08-24 13:30:00 Outpatient ELEN KWON ALEXA LIU [id number] Alexarosa Vela Notes Date/Time Note Provider Source 2023-08-24 13:14:43 [id number]:14:43F ormatting of this note is different from the original.Chief ComplaintPatient presents withNew PatientEstablish CareIs concerned about lungs heavy smoker. Has not been to the doctor in over 6 yearsDANG MaurerN [id number]:19:39Nurse [id number] for patient [id number] NoteLNNARRATIVEFormatted C-CDA narrative textKELOKLAHOMA CITY VETERANS ADMINISTRATION HOSPITAL – OKLAHOMA CITYFADYCincinnati Children's Hospital [facility]27[address] [facility].[id number] 2.3.15|[id number] [facility]"
[2023-10-10] MEDS ORDERED: AMOX/K CLAV 875 MG TAB ONE (20:18)
--- NOTE | 2023-10-10 20:18 | ER ---
Nurse's Notes [facility] Name: Jay Oconnor Age: 22 yrs Sex: Male : 2000 Arrival Date: 10/10/2023 Time: 20:02 Bed IW3 Private MD: Diagnosis: Dental caries, unspecified Presentation: 10/09 20:12 Chief complaint: Patient states: "I've had left sided jaw pain that started this mb9 morning. It's swollen and hurts". Coronavirus screen: At this time, the client does not indicate any symptoms associated with coronavirus-19. Ebola Screen: No symptoms or risks identified at this time. Initial Sepsis Screen: Does the patient meet any 2 criteria? No. Patient's initial sepsis screen is negative. Does the patient have a suspected source of infection? No. Patient's initial sepsis screen is negative. Risk Assessment: Do you want to hurt yourself or someone else? Patient reports no desire to harm self or others. Onset of symptoms was October 10, 2023. 20:12 Method Of Arrival: Ambulatory mb9 20:12 Acuity: ANABELA 4 mb9 Triage Assessment: 20:14 General: Appears in no apparent distress. Behavior is calm, cooperative. Pain: mb9 Complains of pain in jaw Quality of pain is described as throbbing. EENT: Poor dentition noted. Reports pain in jaw. Neuro: Plummer Agitation-Sedation Scale (RASS): 0 - Alert and Calm Level of Consciousness is awake, alert, obeys commands, Oriented to person, place, time, situation, Appropriate for age. Cardiovascular: Patient's skin is warm and dry. Respiratory: Airway is patent Respiratory effort is even, unlabored, Respiratory pattern is regular, symmetrical. GI: No signs and/or symptoms were reported involving the gastrointestinal system. : No signs and/or symptoms were reported regarding the genitourinary system. Derm: Skin is pink, warm \\T\\ dry. Musculoskeletal: Range of motion: intact in all extremities. Historical: - Allergies: 20:13 No Known Allergies; mb9 - Home Meds: 20:13 None [Active]; mb9 - PMHx: 20:13 None; mb9 - PSHx: 20:13 Tonsillectomy; mb9 - Immunization history:: Adult Immunizations up to date. - Infectious Disease History:: Denies. - Social history:: Smoking status: Patient denies any tobacco usage or history of. Screenin:15 [facility] ED Fall Risk Assessment (Adult) History of falling in the last 3 months, mb9 including since admission No falls in past 3 months (0 pts) Confusion or Disorientation No (0 pts) Intoxicated or Sedated No (0 pts) Impaired Gait No (0 pts) Mobility Assist Device Used No (0 pt) Altered Elimination No (0 pt) Score/Fall Risk Level 0 - 2 = Low Risk Oriented to surroundings, Maintained a safe environment, Educated pt \\T\\ family on fall prevention, incl call for assistance when getting out of bed. Abuse screen: Denies threats or abuse. Nutritional screening: No deficits noted. Tuberculosis screening: No symptoms or risk factors identified. Assessment: 20:14 Reassessment: see triage assessment. mb9 Vital Signs: 20:12 BP 135 / 79; Pulse 88; Resp 18; Temp 97.8; Pulse Ox 98% on R/A; Weight 72.57 kg; Height mb9 5 ft. 5 in. ; 20:12 Body Mass Index 26.63 (72.57 kg, 165.1 cm) mb9 ED Course: 20:06 Patient arrived in ED. ra3 20:07 Destini Esquivel [facility]-C [facility] kb 20:07 Agustin Olivares MD is Attending Physician. kb 20:12 Arm band placed on. mb9 20:13 Triage completed. mb9 20:15 Patient has correct armband on for positive identification. Adult w/ patient. Provided mb9 Education on: discharge. Client placed on continuous cardiac and pulse oximetry monitoring. NIBP monitoring applied. 20:15 Assist provider with bone marrow aspiration. Patient did not have IV access during this mb9 emergency room visit. 20:24 Corrine Villanueva RN is Primary Nurse. mb9 Administered Medications: 20:20 Drug: Hydrocodone-Acetaminophen PO (7.5 mg-325 mg) 1 tabs PO once Route: PO; mb9 20:20 Drug: Amoxicillin-Clavulanate PO 875 mg PO once Route: PO; mb9 Outcome: 20:17 Discharge ordered by . kb 20:24 Discharged to home ambulatory, mb9 20:24 Condition: stable 20:24 Discharge instructions given to patient, Instructed on discharge instructions, follow up and referral plans. Demonstrated understanding of instructions, follow-up care, medications, Prescriptions given X 1, 20:24 Patient left the ED. mb9 Signatures: Destini Esquivel FNP-C FNP-Ckb Breneman, Mary Beth RN RN mb9 Nathaly Mckeon ra3
--- NOTE | 2023-10-10 20:18 | EDPHYS ---
Physician Documentation [facility] Name: Jay Oconnor Age: 22 yrs Sex: Male : 2000 Arrival Date: 10/10/2023 Time: 20:02 Bed IW3 Private MD: ED Physician Agustin Olivares HPI: 10/09 20:15 This 22 yrs old Male presents to ER via Ambulatory with complaints of Jaw Pain, kb Toothache. 20:15 Pt is a 22 year old male who presents for toothache that started this morning and has kb gotten worse. Denies fever. States he signed up for dental insurance and plans to go as soon as it kicks in.. Historical: - Allergies: 20:13 No Known Allergies; mb9 - Home Meds: 20:13 None [Active]; mb9 - PMHx: 20:13 None; mb9 - PSHx: 20:13 Tonsillectomy; mb9 - Immunization history:: Adult Immunizations up to date. - Infectious Disease History:: Denies. - Social history:: Smoking status: Patient denies any tobacco usage or history of. ROS: 20:15 Constitutional: As per HPI kb Exam: 20:15 Constitutional: This is a well developed, well nourished patient who is awake, alert, kb and in no acute distress. Head/Face: Normocephalic, atraumatic. Cardiovascular: Regular rate Respiratory: Respirations even and unlabored. No increased work of breathing. Talking in full sentences Abdomen/GI: Soft, non-tender. No distention Skin: Warm, dry with normal turgor. Normal color. MS/ Extremity: Pulses equal, no cyanosis. Neurovascular intact. Full, normal range of motion. Neuro: Awake and alert, GCS 15, oriented to person, place, time, and situation. Moves all extremities. Normal gait. 20:15 ENT: Dental exam: dental caries, that is moderate, specifically in the lower left first molar (#19), gum swelling, that is moderate, specifically in the lower left first molar (#19), pain, Vital Signs: 20:12 BP 135 / 79; Pulse 88; Resp 18; Temp 97.8; Pulse Ox 98% on R/A; Weight 72.57 kg; Height mb9 5 ft. 5 in. ; 20:12 Body Mass Index 26.63 (72.57 kg, 165.1 cm) mb9 MDM: 20:07 Patient medically screened. kb 20:15 Data reviewed: vital signs, nurses notes. kb 20:16 Differential diagnosis: dental caries, gingivitis, dental abscess, pericoronitis. Test kb considered but Not performed: CT: ct considered but pt is afebrile, nontoxic in appearance without swelling to jaw and normal vital signs. CT would not change course of treatment. Counseling: I had a detailed discussion with the patient and/or guardian regarding the historical points, exam findings, and any diagnostic results supporting the discharge/admit diagnosis, the need for outpatient follow up, a dentist, to return to the emergency department if symptoms worsen or persist or if there are any questions or concerns that arise at home. Administered Medications: 20:20 Drug: Hydrocodone-Acetaminophen PO (7.5 mg-325 mg) 1 tabs PO once Route: PO; mb9 20:20 Drug: Amoxicillin-Clavulanate PO 875 mg PO once Route: PO; mb9 Disposition: 23:18 Co-signature as Attending Physician, Agustin Olivares MD I agree with the assessment sp4 and plan of care. I reviewed the patient's care provided by the Advanced Practice Provider and agree with the diagnosis and treatment plan. Disposition Summary: 10/10/23 20:17 Discharge Ordered Notes: Location: Home kb Condition: Stable kb Diagnosis - Dental caries, unspecified kb Followup: kb - With: Emergency Department - When: As needed - Reason: Worsening of condition Followup: kb - With: Private Physician - When: 2 - 3 days - Reason: Recheck today's complaints, Continuance of care, Re-evaluation by your physician Discharge Instructions: - Dental Caries, Adult kb - Dental Pain, [id number] kb - Dental Abscess, [id number] kb - Discharge Summary Sheet mb9 Forms: - Medication Reconciliation Form kb - Antibiotic Education kb - Prescription Opioid Use kb - Patient Portal Instructions kb - Leadership Thank You Letter kb - Work release form mb9 Prescriptions: - Augmentin 875-125 mg Oral Tablet - take 1 tablet ORAL route every 12 hours for 10 days; 20 tablet; Refills: 0, kb Product Selection Permitted Signatures: Destini Esquivel FNP-C FNP-Ckb Breneman, Mary Beth RN RN mb9 Agustin Olivares MD MD sp4
[2023-10-10] MEDS ORDERED: HYDROCODONE/APAP 7.5/325 MG TAB ONE (20:19)
[2023-10-10 20:30] VITALS: BP 135/79; TEMP 97.8; O2SAT 98
== END 2023-10-10 20:24 | disposition home or self-care (01) ==
LOC: ER 20:02
DX: K02.9 Dental caries, unspecified (principal)
CPT/HCPCS: 99284

== ENCOUNTER 2023-10-11 04:12 | Emergency (ER) | payer OTHER ==
--- OUTSIDE RECORDS SUMMARY | 2023-10-11 04:16 | XMS REPORT | Continuity of Care Document ---
Author Name Unknown Address [address] [place] [address] [address] thconnect Address [address] [facility] 1 495 [place] [address] Care Team Providers Care Compliance Field Technician Name Role Phone PUJA LADD Attending Clinician Unavailable RICHARD HODGES Attending Clinician UnavailELEN Back Attending Clinician Unavail le Payers Payer Name Policy Type Policy Number Effective Date Expirati on Date Source AETNA MP [facility] O GRAIN OILSEED OR PASTURE GROWER 94 ON 9 [id number] 2023 00:00:00 Problems Condition Name Condition Details [...] Smoker Alexa coffman - External Sexual orientation K bethany Vela - External History of Social function [...] MG oral Tablet 10-09 00:00: 00 Yes [id number] 50mg Take 1 tablet (50 mg total) by mouth daily. Alexa Vela - Externa l Baclofen 10 MG oral Tablet 10-06 00:00: 00 Yes [id number] 10mg Take 1 tablet (10 mg total) by mouth nightly. Alexa Nelson Externa l Albuterol HFA 108 (90 Base) MCG/ACT IN AERS 08-23 00:00: 00 Yes [id number] 2{puff} Q.25D Inhale 2 puffs into the lungs every 6 hours as needed for wheezing. Alexa Nelson Externa l Immunizations Ordered Immunization Name Filled Immunization Name Date Status Comments Source DTaP Unspecified Unknown Completed Bruce lee Seybold - External DTaP Unspecified Unknown Completed Bruce lee Seybold - External DTaP Unspecified Unknown Completed Bruce lee Seybold - External DTaP Unspecified Unknown Completed Bruce lee Seold - External DTaP Unspecified Unknown Completed Bruce lee Seybold - External Influenza, Seasonal, Injectable Unknown Completed [facility] Influ[facility], Seasonal, Injectable Unknown Completed Alexa Crabtreeold - External Influenza, Seasonal, Injectable Unknown Completed Alexa Millerybold - External Hepatitis B, Adolescent Or Pediatric Unknown Completed Alexa Millerybold - External Hepatitis B, Adolescent Or Pediatric Unknown Completed Alexa Millerybold - External Hepatitis B, Adolescent Or Pediatric Unknown Completed Alexa Millerybold - External Hepatitis B, Adolescent Or Pediatric Unknown Completed Alexa Crabtreeold - External HIB- Haemophilus Influenzae Type B Unknown Completed Alexa Lee bold - External HIB- Haemophilus Influenzae Type B Unknown Completed Alexa Lee bold - External HIB- Haemophilus Influenzae Type B Unknown Completed Alexa Lee bold - External MMR- Measles, Mumps, Rubella Unknown Completed Alexa Seybold - External MMR- Measles, Mumps, Rubella Unknown Completed Alexa Millerybold - External IPV- Inactivated Polio Vaccine Unknown Completed Alexa Millerybold - External IPV- Inactivated Polio Vaccine Unknown Completed Alexa Millerybold - External IPV- Inactivated Polio Vaccine Unknown Completed Alexa Millerybold - External IPV- Inactivated Polio Vaccine Unknown Completed Alexa Millerybold - External Varicella Vaccine Unknown Completed Zak ornelas Seybold - External DTaP Unspecified Unknown Completed [...] IPV- Inactivated Polio Vaccine Unknown Completed Alexa Millerybold - External IPV- Inactivated Polio Vaccine Unknown Completed Alexa Millerybold - External IPV- Inactivated Polio Vaccine Unknown Completed Alexa Seybold - External IPV- Inactivated Polio Vaccine Unknown Completed Alexa Seybold - External Varicella Vaccine Unknown Completed Zak ornelas Seybold - External Vital Signs Vital Name Observation Time Observation Value Comments S ource Systolic blood pressure 2023-08-24 18:11:00 104 mm[Hg] Alexa Millerybo ld - External Diastolic blood pressure 2023-08-24 18:11:00 66 mm[Hg] Alexa Millerybo ld - External Heart rate 2023-08-24 18:11:00 86 /min Brucese steven Seybold - External Body temperature 2023-08-24 18:11:00 36.67 Leah Alexa Seybold - External Respiratory rate 2023-08-24 18:11:00 18 /min Alexa Millerybold - External Body height 2023-08-24 18:11:00 174 cm Pat arlene Seybold - External Body weight 2023-08-24 18:11:00 55.339 kg Pat jacobs Seybold - External BMI 2023-08-24 18:11:00 18.28 kg/m2 Pat ey Seybold - External Oxygen saturation in Arterial blood by Pulse oximetry 2023-08-24 18:11:00 99 /min Alexa codie ld - External Encounters Start Date/Time End Date/Time Encounter Type Admission Type Attending [facility] Care Department Encounter ID Source 2023-10-24 10:15:00 2023-10-24 10:15:00 Outpatient PJUA LADD [id number] [facility] 2023-10-10 09:00:00 2023-10-10 09:00:00 Outpatient RICHARD HODGES [id number] [facility] 2023-10-07 00:00:00 2023-10-07 00:00:00 Outpatient ELEN KWON [id number] [facility] 2023-10-05 00:00:00 2023-10-05 00:00:00 [facility] [id number] [facility]:00:00 2023-10-03 00:00:00 [facility] [id number] [facility] 2023-10-02 00:00:00 2023-10-02 00:00:00 Outpatient PUJA LADD [id number] [facility] 2023-09-27 12:30:00 2023-09-27 12:30:00 [facility] [id number] [facility] 12:25:00 2023-09-27 12:25:00 Outpatient ALEXA LIU [id number] [facility] 2023-09-23 13:30:00 2023-09-23 13:30:00 Outpatient ELEN KWON [id number] [facility] 2023-09-23 00:00:00 2023-09-23 00:00:00 Outpatient ELEN KWON [id number] [facility] 2023-08-24 13:30:00 2023-08-24 13:30:00 Outpatient ELEN KWON ALEXA LIU [id number] Alexa Vela Notes Date/Time Note Provider Source 2023-08-24 13:14:43 [id number]:14:43F ormatting of this note is different from the original.Chief ComplaintPatient presents withNew PatientEstablish CareIs concerned about lungs heavy smoker. Has not been to the doctor in over 6 yearsDANG MaurerN [id number] [id number]:19:39Nurse [id number] for patient [id number] NoteLNNARRATIVEFormatted C-CDA narrative textKELALLIANCEHEALTH MADILL – MADILLEPThe Surgical Hospital at Southwoods2727 [facility].[id number]:[id number] 2.3.15|[id number]. [id number] [facility]"
[2023-10-11] MEDS ORDERED: DIAZEPAM 10 MG/2 ML INJ SYRINGE ONE (04:26)
[2023-10-11] MEDS ORDERED: ONDANSETRON 4 MG/2 ML VIAL ONE (04:26)
[2023-10-11] MEDS ORDERED: NA CHLORIDE 0.9% 1,000 ML ONE (04:27)
[2023-10-11] MEDS ORDERED: METOCLOPRAMIDE 10 MG/2mL INJ ONE (04:27)
[2023-10-11] MEDS ORDERED: KETOROLAC 30 MG/ML INJ ONE (04:27)
[2023-10-11 05:22] LABS: Albumin 4.7 g/dL (3.4-5.0); Albumin/Globulin Ratio 1.3 (1.1-1.8); Anion Gap 13.4 mEq/L (5.0-15.0); Bilirubin Total 1.6 mg/dL (0.2-1.0); Globulin 3.6 g/dL (2.3-3.5); Potassium 3.4 mEq/L (3.5-5.1); Protein, Total 8.3 g/dL (6.4-8.2)
[2023-10-11 05:42] LABS: Absolute Lymphocytes (CBC) 2.1 K/uL (0.7-4.9); Absolute Neutrophil 8.7 K/uL (1.8-8.0); Basophils % 0.2 % (0-1.3); Eosinophils % 0.2 % (0-4.4); Hematocrit 43.7 % (39.6-49.0); Hemoglobin 14.7 g/dL (13.6-17.9); Lymphocytes % 17.4 % (15.3-44.8); MCHC 33.7 g/dL (32.0-36.0); MCV 91.9 fL (80-100); MPV 8.1 fL (7.6-11.3); Monocytes % 8.8 % (3.3-12.3); Neutrophils % 73.4 % (41.7-73.7); Nucleated Red Blood Cells % 0.1 % (0-0); Platelets 255 thou/uL (152-406); RBC Red Blood Cell Count 4.76 M/uL (4.33-5.43); Red Cell Distribution Width 12.6 % (12.1-15.2)
--- NOTE | 2023-10-11 06:40 | ER ---
Nurse's Notes [facility] Name: Jay Oconnor Age: 22 yrs Sex: Male : 2000 Arrival Date: 10/11/2023 Time: 04:12 Bed 3 Private MD: Diagnosis: Vomiting, unspecified;Acute Gastroenteritis Presentation: 10/10 04:13 Chief complaint: Patient states: N/V, abd pain X2 hr. Coronavirus screen: Client denies lg3 travel out of the [place] in the last 14 days. At this time, the client does not indicate any symptoms associated with coronavirus-19. Ebola Screen: No symptoms or risks identified at this time. Risk Assessment: Do you want to hurt yourself or someone else? Patient reports no desire to harm self or others. Onset of symptoms was October 11, 2023. 04:13 Method Of Arrival: EMS: [facility] 3 04:13 Acuity: ANABELA 3 lg3 06:52 Initial Sepsis Screen: Does the patient meet any 2 criteria? No. Patient's initial kd4 sepsis screen is negative. Does the patient have a suspected source of infection? No. Patient's initial sepsis screen is negative. Triage Assessment: 04:14 General: Appears in no apparent distress. uncomfortable, slender, Behavior is lg3 cooperative, anxious, fussy. Pain: Complains of pain in head and abdomen. EENT: No deficits noted. No signs and/or symptoms were reported regarding the EENT system. Neuro: [place]ummer Agitation-Sedation Scale (RASS): +1 Restless Level of Consciousness is awake, alert, obeys commands, Oriented to person, place, time, situation. Cardiovascular: No deficits noted. Denies chest pain, shortness of breath, Capillary refill < 3 seconds Clubbing of nail beds is absent JVD is absent Patient's skin is warm and dry. Respiratory: No deficits noted. Airway is patent Respiratory effort is even, unlabored. GI: Abdomen is flat, non-distended, Pt is actively vomiting clear fluid, undigested food, Reports lower abdominal pain, upper abdominal pain, nausea, vomiting. : No deficits noted. No signs and/or symptoms were reported regarding the genitourinary system. Derm: No deficits noted. No signs and/or symptoms reported regarding the dermatologic system. Skin is intact, is healthy with good turgor, Skin is dry, Skin is normal, Skin temperature is warm. Musculoskeletal: No deficits noted. No signs and/or symptoms reported regarding the musculoskeletal system. Circulation, motion, and sensation intact. Range of motion: intact in all extremities. Historical: - Allergies: 04:14 No Known Allergies; lg3 - Home Meds: 04:14 None [Active]; lg3 - PMHx: 04:14 scoliosis; lg3 - PSHx: 04:14 Tonsillectomy; lg3 - Immunization history:: Adult Immunizations up to date. - Infectious Disease History:: Denies. - Social history:: Smoking status: Reported history of juuling and/or vaping. Patient uses street drugs, marijuana. - Family history:: not pertinent. Screenin:17 [facility] ED Fall Risk Assessment (Adult) History of falling in the last 3 months, lg3 including since admission No falls in past 3 months (0 pts) Confusion or Disorientation No (0 pts) Intoxicated or Sedated No (0 pts) Impaired Gait No (0 pts) Mobility Assist Device Used No (0 pt) Altered Elimination No (0 pt) Score/Fall Risk Level 0 - 2 = Low Risk Oriented to surroundings, Maintained a safe environment, Educated pt \T\ family on fall prevention, incl call for assistance when getting out of bed, Assessed \T\ reinforced patient's understanding of fall precautions. Abuse screen: Denies threats or abuse. Denies injuries from another. Nutritional screening: No deficits noted. Tuberculosis screening: No symptoms or risk factors identified. Assessment: 04:17 General: see triage assessment. lg3 06:15 Reassessment: patient having chills, 2 episode of vomiting. kd4 06:55 Reassessment: d/c urine test. kd4 Vital Signs: 05:08 BP 116 / 65; kd4 06:23 BP 101 / 59; Pulse 85; Resp 19; Pulse Ox 100% on R/A; kd4 [place] Coma Score: 21:31 Eye Response: spontaneous(4). Motor Response: obeys commands(6). Verbal Response: sp4 oriented(5). Total: 15. ED Course: 04:13 Patient arrived in ED. lg3 04:14 Triage completed. lg3 04:14 Arm band placed on right wrist. lg3 04:17 Patient has correct armband on for positive identification. Placed in gown. Bed in low lg3 position. Call light in reach. Side rails up X 1. Client placed on continuous cardiac and pulse oximetry monitoring. NIBP monitoring applied. Door closed. Noise minimized. Warm blanket given. Pillow given. 04:17 Inserted saline lock: 20 gauge in left antecubital area, using aseptic technique. Blood lg3 collected. 04:22 Agustin Olivares MD is Attending Physician. sp4 06:51 No provider procedures requiring assistance completed. IV discontinued, intact. kd4 06:53 Provided Education on: d'c instruction. kd4 Administered Medications: 06:54 Discontinued: ns 0.9% 1000 ml IV at 125 ml/hr continuous kd4 06:54 Discontinued: ns 0.9% 500 ml IV at bolus once kd4 04:32 Drug: Diazepam IVP 5 mg IVP once Route: IVP; Site: left antecubital; kd4 06:54 Follow up: Response: No adverse reaction kd4 04:32 Drug: Ketorolac IVP 30 mg IVP once Route: IVP; Site: left antecubital; kd4 06:53 Follow up: Response: No adverse reaction kd4 04:33 Drug: metoCLOPramide IVP 10 mg IVP once; over 1 to 2 minutes Route: IVP; Site: left 4 antecubital; 06:53 Follow up: Response: No adverse reaction kd4 04:34 Drug: Ondansetron IVP 4 mg IVP once; over 2 minutes Route: IVP; Site: left antecubital; kd4 06:54 Follow up: Response: No adverse reaction kd4 04:39 Drug: NS 0.9% IV 500 ml IV at bolus once Route: IV; Rate: bolus; Site: left antecubital;kd4 05:08 Drug: NS 0.9% IV 1000 ml IV at 125 ml/hr continuous Route: IV; Rate: 125 ml/hr; Site: [facility] left antecubital; Outcome: 06:40 Discharge ordered by . sp4 06:51 Discharged to home ambulatory, kd4 06:51 Condition: stable 06:51 Discharge instructions given to patient, Instructed on discharge instructions, Prescriptions given X 1, 06:56 Patient left the ED. kd4 Signatures: Josselyn Streeter RN RN lg3 Agustin Olivares MD MD sp4 Tucker, Lucy, RN RN kd4
--- NOTE | 2023-10-11 06:40 | EDPHYS ---
Physician Documentation [facility] Name: Jay Oconnor Age: 22 yrs Sex: Male : 2000 Arrival Date: 10/11/2023 Time: 04:12 Bed 3 Private MD: ED Physician Agustin Olivares HPI: 10/10 04:42 This 22 yrs old Male presents to ER via EMS with complaints of vomiting . sp4 20:02 22 year old male presents with EMS , . sp4 21:30 Patient presents with significant of vomiting and also there is additional chills, sp4 shivers and tremors. . 21:31 Patient was here yesterday for dental caries and was prescribed Augmentin p.o.. sp4 Historical: - Allergies: 04:14 No Known Allergies; lg3 - Home Meds: 04:14 None [Active]; lg3 - PMHx: 04:14 scoliosis; lg3 - PSHx: 04:14 Tonsillectomy; lg3 - Immunization history:: Adult Immunizations up to date. - Infectious Disease History:: Denies. - Social history:: Smoking status: Reported history of juuling and/or vaping. Patient uses street drugs, marijuana. - Family history:: not pertinent. ROS: 21:31 Constitutional: Positive for chills, vomiting, tremors, and generalized discomfort. sp4 21:31 All other systems are negative, sp4 Exam: 21:31 Constitutional: This is a and very thin male with multiple tattoos, dry heaving on sp4 exam, generalized parameters and chills. Ill-appearing and pale but nontoxic Head/Face: Normocephalic, atraumatic. Eyes: Pupils equal round and reactive to light, extra-ocular motions intact. Lids and lashes normal. Conjunctiva and sclera are not injected. Cornea within normal limits. Periorbital areas with no swelling, redness, or edema. ENT: Nares patent. No nasal discharge, no septal abnormalities noted. Tympanic membranes are normal and external auditory canals are clear. Oropharynx with no redness, swelling, or masses, exudates, or evidence of obstruction, uvula midline. Mucous membranes moist. Neck: Trachea midline, no thyromegaly or masses palpated, and no cervical lymphadenopathy. Supple, full range of motion without nuchal rigidity, or vertebral point tenderness. Chest/axilla: Normal chest wall appearance and motion. Nontender with no deformity. No lesions are appreciated. Cardiovascular: Regular rate and rhythm with a normal S1 and S2. No gallops, murmurs, or rubs. Normal PMI, no JVD. No pulse deficits. Respiratory: Lungs have equal breath sounds bilaterally, clear to auscultation and percussion. No rales, rhonchi or wheezes noted. No increased work of breathing, no retractions or nasal flaring. Abdomen/GI: Soft, with normal bowel sounds. No distension or tympany. No guarding or rebound. No evidence of tenderness throughout. Back: No spinal tenderness. No costovertebral tenderness. Skin: Warm, dry with normal turgor. There is generalized pallor multiple tattoos, with no rashes, no lesions, and no evidence of cellulitis. MS/ Extremity: Pulses equal, no cyanosis. Neurovascular intact. Full, normal range of motion. Neuro: Awake and alert, GCS 15, oriented to person, place, time, and situation. Cranial nerves II-XII grossly intact. Motor strength 5/5 in all extremities. Sensory grossly intact. Psych: Awake, alert, with orientation to person, place and time. There is emotional upset Vital Signs: 05:08 BP 116 / 65; kd4 06:23 BP 101 / 59; Pulse 85; Resp 19; Pulse Ox 100% on R/A; kd4 [place] Coma Score: 21:31 Eye Response: spontaneous(4). Motor Response: obeys commands(6). Verbal Response: sp4 oriented(5). Total: 15. MDM: 04:52 Patient medically screened. sp4 21:31 Differential Diagnosis altered mental status, sepsis, flu. Data reviewed: vital signs, sp4 nurses notes, EMS record, old medical records, lab test result(s). Consideration of Admission/Observation Escalation of care including admission/observation considered. ED course: Patient has improved after administration of multiple medications. Patient was also given Valium for generalized parameters. IV hydration as well. Patient has improved significantly. Denied any abdominal pain on repeat exam. Stable for discharge home with as needed ondansetron. 10/10 04:23 Order name: CBC with Diff; Complete Time: 06:37 sp4 10/10 04:23 Order name: CMP; Complete Time: 06:37 sp4 10/10 04:23 Order name: Lipase; Complete Time: 06:37 sp4 10/10 04:23 Order name: IV Saline Lock; Complete Time: 04:24 sp4 10/10 04:23 Order name: Labs collected and sent; Complete Time: 04:24 sp4 Administered Medications: 06:54 Discontinued: ns 0.9% 1000 ml IV at 125 ml/hr continuous kd4 06:54 Discontinued: ns 0.9% 500 ml IV at bolus once kd4 04:32 Drug: Diazepam IVP 5 mg IVP once Route: IVP; Site: left antecubital; kd4 06:54 Follow up: Response: No adverse reaction kd4 04:32 Drug: Ketorolac IVP 30 mg IVP once Route: IVP; Site: left antecubital; kd4 06:53 Follow up: Response: No adverse reaction kd4 04:33 Drug: metoCLOPramide IVP 10 mg IVP once; over 1 to 2 minutes Route: IVP; Site: left kd4 antecubital; 06:53 Follow up: Response: No adverse reaction kd4 04:34 Drug: Ondansetron IVP 4 mg IVP once; over 2 minutes Route: IVP; Site: left antecubital; kd4 06:54 Follow up: Response: No adverse reaction kd4 04:39 Drug: NS 0.9% IV 500 ml IV at bolus once Route: IV; Rate: bolus; Site: left antecubital;kd4 05:08 Drug: NS 0.9% IV 1000 ml IV at 125 ml/hr continuous Route: IV; Rate: 125 ml/hr; Site: kd4 left antecubital; Disposition Summary: 10/11/23 06:40 Discharge Ordered Notes: Location: Home sp4 Problem: new sp4 Symptoms: have improved sp4 Condition: Stable sp4 Diagnosis - Vomiting, unspecified sp4 - Acute Gastroenteritis sp4 Followup: sp4 - With: Private Physician - When: 7 - 10 days - Reason: Recheck today's complaints Discharge Instructions: - Discharge Summary Sheet sp4 - Nausea and Vomiting, Adult sp4 Forms: - Patient Portal Instructions sp4 Prescriptions: - ondansetron 8 mg Oral Tablet,disintegrating - take 1 tablet ORAL route every 8 hours PRN nausea; 30 tablet; Refills: 0, sp4 Product Selection Permitted Signatures: Dispatcher [employer] Josselyn Santos, RN RN lg3 Agustin Olivares MD MD sp4 Lucy Ceballos RN RN kd4
[2023-10-11 07:02] VITALS: BP 101/59; O2SAT 100
== END 2023-10-11 06:56 | disposition home or self-care (01) ==
LOC: ER 04:12
DX: K52.9 Noninfective gastroenteritis and colitis, unspecified (principal)
CPT/HCPCS: 85025; 36415; 83690; 80053; 96375; 96374; 99284; J2765; J3360; J2405; J7030

== ENCOUNTER 2024-02-27 04:49 | Emergency (ER) | payer OTHER ==
--- OUTSIDE RECORDS SUMMARY | 2024-02-27 05:00 | XMS REPORT | Continuity of Care Document ---
Author Name Unknown Address [address] [place] [address] [address] [facility] Address [address] [facility]. 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 Active 6-10 00:00: 00 Rebekah lizarraga Tobacco use disorder Tobacco use disorder Disease Active 4-24 00:00: 00 Rebekah lizarraga Social History Social Habit Start Date Stop Date Quantity Comments Source History of tobacco use Cigarette Smoker Rebekah coffman - External Sexual orientation Bg Vela - External History of Social function 2024-01-27 00:00:00 2024-01-27 00:00:00 Rebekah Vela - External Sex 2023-06-08 21:32:18 2023-06-08 21:32:18 Male (finding) Rebekah Vela - External Sex assigned at 2000 00:00:00 2000 00:00:00 Rebekah Vela - External Smoking Status Start Date Stop Date Source Smokes tobacco daily 2023-08-24 00:00:00 Rebekah Nelson External Medications Ordered Medication Name Filled Medication Name Start Date Stop Date Current Medication? Ordering Clinician Indication Dosage Frequency Signature (SIG) Comments Components Source Sertraline HCl 100 MG oral Tablet - 00:00: 00 Yes [id number] 100mg QD Take 1 tablet (100 mg total) by mouth daily. Rebekah lizarraga Baclofen 10 MG oral Tablet 7-13 00:00: 00 Yes [id number] 10mg QD Take 1 tablet (10 mg total) by mouth nightly. Rebekah lizarraga Sertraline HCl 50 MG oral Tablet 7-05 00:00: 00 01-26 00:00 :00 No [id number] 50mg QD TAKE 1 TABLET BY MOUTH EVERY DAY Rebekah lizarraga Sertraline HCl 50 MG oral Tablet 6-10 00:00: 00 Yes [id number] 50mg Take 1 tablet (50 mg total) by mouth daily. Rebekah lizarraga Baclofen 10 MG oral Tablet 6-07 00:00: 00 Yes [id number] 10mg Take 1 tablet (10 mg total) by mouth nightly. Rebekah lizarraga Albuterol HFA 108 (90 Base) MCG/ACT IN AERS 08-23 00:00: 00 Yes [id number] 2{puff} Q.25D Inhale 2 puffs into the lungs every 6 hours as needed for wheezing. Rebekah lizarraga Immunizations Ordered Immunization Name Filled Immunization Name Date Status Comments Source DTaP Unspecified Unknown Completed Bruce Vela - External AFLURIA TRIVALENT MDV Unknown Completed Rebekah Gallegos Hepatitis B, Adolescent Or Pediatric Unknown Completed Rebekah Gallegos HIB- Haemophilus Influenzae Type B Unknown Completed Rebekah dee - External MMR- Measles, Mumps, Rubella Unknown Completed Rebekah Nelson External IPV- Inactivated Polio Vaccine Unknown Completed Rebekah Nelson External Varicella Vaccine Unknown Completed Zak Vela - External DTaP Unspecified Unknown Completed Bruce Vela - External Influenza, Seasonal, Injectable Unknown Completed Rebekah Seybold - External Hepatitis B, Adolescent Or Pediatric Unknown Completed Rebekah Crabtreeold - External HIB- Haemophilus Influenzae Type B Unknown Completed Rebekah Lee bold - External MMR- Measles, Mumps, Rubella Unknown Completed Rebekah Crabtreeold - External IPV- Inactivated Polio Vaccine Unknown Completed Rebekah Crabtreeold - External Varicella Vaccine Unknown Completed Zak ornelas Seybold - External DTaP Unspecified Unknown Completed Bruce lee Seybold - External Influenza, Seasonal, Injectable Unknown Completed Rebekah Millerybold - External Hepatitis B, Adolescent Or Pediatric Unknown Completed Rebekah Millerybold - External HIB- Haemophilus Influenzae Type B Unknown Completed Rebekah Lee bold - External MMR- Measles, Mumps, Rubella Unknown Completed Rebekah Millerybold - External IPV- Inactivated Polio Vaccine Unknown Completed Rebekah Millerybold - External Varicella Vaccine Unknown Completed Zak ornelas Seybold - External Vital Signs Vital Name Observation Time Observation Value Comments S ource Heart rate 2024-01-27 15:59:00 59 /min Zachary Vela - External Body temperature 2024-01-27 15:59:00 36.33 Leah Rebekah Millerybold - External Respiratory rate 2024-01-27 15:59:00 18 /min Rebekah Seybold - External Body height 2024-01-27 15:59:00 174 cm Pat jacobs Seybold - External Body weight 2024-01-27 15:59:00 56.246 kg Pat jacobs Seybold - External BMI 2024-01-27 15:59:00 18.58 kg/m2 Pat jacobs Seybold - External Oxygen saturation in Arterial blood by Pulse oximetry 2024-01-27 15:59:00 99 /min Rebekah doryo ld - External Systolic blood pressure 2024-01-27 15:59:00 94 mm[Hg] Rebekah doryo ld - External Diastolic blood pressure 2024-01-27 15:59:00 60 mm[Hg] Rebekah ybo ld - External Systolic blood pressure 2023-08-24 18:11:00 104 mm[Hg] Rebekah ybo ld - External Diastolic blood pressure 2023-08-24 18:11:00 66 mm[Hg] Rebekah doryo ld - External Heart rate 2023-08-24 18:11:00 86 /min Zachary Vela - External Body temperature 2023-08-24 18:11:00 36.67 Leah Rebekah Vela - External Respiratory rate 2023-08-24 18:11:00 18 /min Rebekah Vela - External Body height 2023-08-24 18:11:00 174 cm Pat jacobs Seybold - External Body weight 2023-08-24 18:11:00 55.339 kg Pat ey Seybold - External BMI 2023-08-24 18:11:00 18.28 kg/m2 Pat ey Seybold - External Oxygen saturation in Arterial blood by Pulse oximetry 2023-08-24 18:11:00 99 /min Rebekah Millerdoryloan ld - External Encounters Start Date/Time End Date/Time Encounter Type Admission Type Attending [facility] Department Encounter ID Source 2024-05-09 10:15:00 2024-05-09 10:15:00 Out[facility] [id number] [facility] 10:30:00 2024-03-02 10:30:00 Outpatient ELEN KWON [id number] Rebekah [facility] 2024-02-24 11:30:00 2024-02-24 11:30:00 Outpatient ELEN KWON [id number] Rebekah [facility] 2024-02-19 00:00:00 2024-02-19 00:00:00 Outpatient LEORA GARCIA [id number] Rebekah [facility] 2024-01-27 11:15:00 2024-01-27 11:15:00 Outpatient LEORA GARCIA [id number] [facility] 2024-01-20 15:00:00 2024-01-20 15:00:00 Outpatient ELEN KWON [id number] [facility] 2023-12-12 10:15:00 2023-12-12 10:15:00 Outpatient PUJA LADD [id number] [facility] 2023-11-25 00:00:00 2023-11-25 00:00:00 Outpatient RICHARD HODGES [id number] [facility] 2023-11-06 00:00:00 2023-11-06 00:00:00 Outpatient ELEN KWON REBEKAH LIU [id number] [facility] 2023-11-03 00:00:00 2023-11-03 00:00:00 Outpatient RICHARD HODGES REBEKAH LIU [id number] [facility] 2023-10-24 10:15:00 2023-10-24 10:15:00 Outpatient PUJA LADD REBEKAH REBEKAH [id number] [facility] 2023-10-12 00:00:00 2023-10-12 00:00:00 Outpatient REBEKAH LIU [id number] [facility] 2023-10-10 09:00:00 2023-10-10 09:00:00 Outpatient RICHARD HODGES REBEKAH LIU [id number] [facility] 2023-10-07 00:00:00 2023-10-07 00:00:00 Outpatient ELEN KWON REBEKAH [id number] [facility] 2023-10-05 00:00:00 2023-10-05 00:00:00 Outpatient SUKHDEVDEVINPUJA Kelley REBEKAH LIU [id number] [facility] 2023-10-03 00:00:00 2023-10-03 00:00:00 Outpatient ELEN KWON REBEKAH LIU [id number] [facility] 2023-10-02 00:00:00 2023-10-02 00:00:00 Outpatient PUJA LADD REBEKAH REBEKAH [id number] [facility] 2023-09-27 12:30:00 2023-09-27 12:30:00 Outpatient REBEKAH LIU [id number] Rebekah Sey[facility] 2023-09-27 12:25:00 2023-09-27 12:25:00 Outpatient REBEKAH LIU [id number] [facility] 2023-09-23 13:30:00 2023-09-23 13:30:00 Outpatient TAMIA KWONTHIA REBEKAH LIU [id number] [facility] 2023-09-23 00:00:00 2023-09-23 00:00:00 Outpatient ELEN KWON [id number] Rebekah Vela 2023-08-24 13:30:00 2023-08-24 13:30:00 Outpatient CHRE ELEN LIU [id number] Rebekah Vela Notes Date/Time Note Provider Source 2023-08-24 13:14:43 Chief Complaint Patient presents with New Patient Establish Care Is concerned about lungs heavy smoker. Has not been to the doctor in over 6 years [facility]
[2024-02-27] MEDS ORDERED: droPERidol 5 MG/2 ML VIAL ONE (05:08)
[2024-02-27 05:33] LABS: Absolute Eosinophils 0.1 K/uL (0-0.5); Absolute Lymphocytes (CBC) 2.1 K/uL (0.7-4.9); Absolute Monocytes 1.1 K/uL (0.1-1.3); Absolute Neutrophil 10.9 K/uL (1.8-8.0); Basophils % 0.3 % (0-1.3); Eosinophils % 0.4 % (0-4.4); Hematocrit 43.7 % (39.6-49.0); Hemoglobin 14.2 g/dL (13.6-17.9); Lymphocytes % 15.1 % (15.3-44.8); MCH 30.3 pg (27.0-35.0); MCHC 32.5 g/dL (32.0-36.0); MCV 93.2 fL (80-100); MPV 8.5 fL (7.6-11.3); Monocytes % 7.8 % (3.3-12.3); Neutrophils % 76.4 % (41.7-73.7); Platelets 229 thou/uL (152-406); RBC Red Blood Cell Count 4.69 M/uL (4.33-5.43); Red Cell Distribution Width 13.4 % (12.1-15.2)
[2024-02-27 06:12] LABS: Albumin 4.5 g/dL (3.4-5.0); Albumin/Globulin Ratio 1.4 (1.1-1.8); Anion Gap 12.9 mEq/L (5.0-15.0); Bilirubin Total 0.8 mg/dL (0.2-1.0); Globulin 3.3 g/dL (2.3-3.5); Potassium 2.9 mEq/L (3.5-5.1); Protein, Total 7.8 g/dL (6.4-8.2)
--- NOTE | 2024-02-27 07:11 | RAD REPORT ---
CT ABDOMEN PELVIS WITH IV CONTRAST CLINICAL INDICATION: Abdominal pain COMPARISON: None TECHNIQUE: CT images of the abdomen and pelvis obtained following administration of intravenous contr ast. Multiplanar reformats were provided. Dose-optimization techniques such as automated exposure control, iterative reconstruction, and mA and/or kV adjustment for patient size was utilized for this examination. FINDINGS: Examination is degraded by excessive patient's motion. LOWER CHEST: Unremarkable. LIVER: Unremarkable. BILIARY: Unremarkable. PANCREAS: Unremarkable. SPLEEN: Unremarkable. ADRENALS: Unremarkable. KIDNEYS/URETERS: Unremarkable. BOWEL/STOMACH: Mildly prominent gastric mucosal folds. Circumferential wall thickening of some small bowel loops and mild circumferential wall thickening of colon. Mesenteric vessels are mildly engorged. Overall findings are suspicious for gastroenterocolitis. No bowel obstruction. APPENDIX: Normal. MESENTERY/PERITONEUM: No free fluid or free air. No focal collection. RETROPERITONEUM: No adenopathy. URINARY BLADDER: Unremarkable. REPRODUCTIVE: Unremarkable. VASCULAR: Unremarkable. ABDOMINAL/PELVIC WALL: Unremarkable. BONES: No acute findings. Borderline congenital lumbar canal narrowing. IMPRESSION: 1. Suspected gastroenterocolitis. 2. Borderline congenital lumbar canal narrowing. Electronically signed by: Dimple Chaudhry MD 02/27/2024 07:08 AM CDT Due to temporary technical issues with the PACS/SimplyBox reporting system, reports are being harpreet d by the in-house radiologist without review as a courtesy to ensure prompt reporting the interpreting radiologist is fully responsible for the content of the report. Transcribed Date/Time: 02/27/2024 7:11 AM
--- NOTE | 2024-02-27 07:39 | EDPHYS ---
Physician Documentation [facility] Name: Jay Oconnor Age: 23 yrs Sex: Male : 2000 Arrival Date: 02/27/2024 Time: 04:49 Bed 13 Private MD: ED Physician Marty Valdes HPI: 02/26 05:07 This 23 yrs old Male presents to ER via Unassigned with complaints of Abdominal Pain, rn Nausea. 05:07 The patient presents to the emergency department with nausea, vomiting, diarrhea, rn abdominal pain. Onset: The symptoms/episode began/occurred this morning. Possible causes: unknown. The symptoms are aggravated by nothing. The symptoms are alleviated by nothing. Severity of symptoms: At their worst the symptoms were moderate in the emergency department the symptoms are unchanged. The patient has not experienced similar symptoms in the past. Patient reports nausea/vomiting/diarrhea with abdominal pain that began 1-1/2 hours ago. Family member called 911 denies chronic abdominal issues. No blood in emesis or stool.. Historical: - Allergies: 05:30 No Known Allergies; kj2 - PMHx: 05:30 scoliosis; kj2 06:02 Anxiety; kj2 - PSHx: 05:30 Tonsillectomy; kj2 - Immunization history:: Adult Immunizations unknown. - Infectious Disease History:: Denies. - Family history:: not pertinent. - Hospitalizations: : No recent hospitalization is reported. - Social history:: Smoking status: Patient reports the use of cigarette tobacco products, unknown amount Reported history of juuling and/or vaping. ROS: 05:07 Constitutional: Negative for fever, chills, and weight loss, Cardiovascular: Negative rn for chest pain, palpitations, and edema, Respiratory: Negative for shortness of breath, cough, wheezing, and pleuritic chest pain, Abdomen/GI: Positive for abdominal pain nausea/vomiting/diarrhea MS/Extremity: Negative for injury and deformity, Skin: Negative for injury, rash, and discoloration, Neuro: Negative for headache, weakness, numbness, tingling, and seizure, Exam: 05:07 Constitutional: Thin male, rocking back and forth, appears uncomfortable internal communications intern: Regular rate and rhythm. No pulse deficits. Respiratory: No increased work of breathing, no retractions or nasal flaring. Abdomen/GI: Soft, mid and epigastric tenderness. No peritoneal signs Vital Signs: 05:00 BP 122 / 96; Pulse 97; Resp 18; Temp 98; Pulse Ox 100% on R/A; Weight 54.43 kg; Height kj2 5 ft. 10 in. ; 06:06 BP 132 / 74; Pulse 93; Resp 20; Pulse Ox 100% ; kj2 06:54 BP 140 / 87; Pulse 81; Resp 16; Pulse Ox 99% on R/A; kj2 08:11 BP 128 / 74; Pulse 82; Resp 16; Pulse Ox 100% on R/A; db 05:00 Body Mass Index 17.22 (54.43 kg, 177.8 cm) kj2 MDM: 05:03 Medical Screening Exam initiated rn 07:42 Differential diagnosis: Nonspecific abd pain, viral gastroenteritis, gastroenteritis. ms3 Data reviewed: vital signs, nurses notes, lab test result(s), radiologic studies, and as a result, I will discharge patient. I considered the following discharge prescriptions or medication management in the emergency department Medications were administered in the Emergency Department. See MAR. Counseling: I had a detailed discussion with the patient and/or guardian regarding the historical points, exam findings, and any diagnostic results supporting the discharge/admit diagnosis, lab results, radiology results, the need for outpatient follow up, to return to the emergency department if symptoms worsen or persist or if there are any questions or concerns that arise at home. Transition of care: Care assumed from Raleigh Moreira MD. Special discussion: Based on the patient's Hx, exam, and Dx evaluation, there is no indication for emergent surgery or inpatient Tx. It is understood by the patient/guardian that if the Sx's persist or worsen they need to return immediately for re-evaluation. ED course: On reevaluation patient symptoms improved, patient is alert and oriented x 4, no apparent distress, nontoxic-appearing, ambulatory in the emergency department. Patient to follow-up with primary care physician in 2 to 3 days. Patient understands and agrees with plan. All questions were answered. Patient given prescription for Augmentin for colitis, potassium for hypokalemia, Zofran for nausea and vomiting. Return precautions discussed include worsening symptoms, or any other concerns.. 02/26 05:04 Order name: CBC with Diff; Complete Time: 06:03 rn 02/26 05:04 Order name: CMP; Complete Time: 06:46 rn 02/26 05:04 Order name: Lipase; Complete Time: 06:46 rn 02/26 05:04 Order name: CT Abd/Pelvis - IV Contrast Only; Complete Time: 07:43 rn 02/26 05:04 Order name: IV Saline Lock; Complete Time: 05:21 rn 02/26 05:04 Order name: Labs collected and sent; Complete Time: 05:21 rn 02/26 05:31 Order name: Misc. Order: redraw labs; hemolyzed; Complete Time: 05:43 vc1 Administered Medications: 05:21 Drug: Droperidol IVP 1.25 mg IVP once Route: IVP; Site: left antecubital; lg3 06:23 Follow up: Response: No adverse reaction kj2 07:50 Drug: Potassium PO Effervescent Tablet 50 mEq PO once; dissolve in 4 ounces of water or db juice Route: PO; 08:13 Follow up: Response: No adverse reaction db Disposition Summary: 02/27/24 07:38 Discharge Ordered Notes: Location: Home ms3 Condition: Stable ms3 Diagnosis - Vomiting ms3 - Diarrhea, unspecified ms3 - Infectious gastroenteritis and colitis, unspecified ms3 Followup: ms3 - With: Buddy Gagnon DO - When: 2 - 3 days - Reason: Re-evaluation by your physician Discharge Instructions: - Discharge Summary Sheet ms3 - Food Choices to Help Relieve Diarrhea, Adult ms3 - Viral Gastroenteritis, Adult ms3 - Vomiting, Adult ms3 Forms: - Medication Reconciliation Form ms3 - Antibiotic Education ms3 - Prescription Opioid Use ms3 - Patient Portal Instructions ms3 - Leadership Thank You Letter ms3 - Work release form db Prescriptions: - ondansetron 4 mg Oral Tablet,disintegrating - take 1 tablet ORAL route every 8 hours; 15 tablet; Refills: 0, Product ms3 Selection Permitted - potassium chloride 10 mEq Oral capsule, extended release - take 1 capsule ORAL route 3 times per day; 9 capsule; Refills: 0, Product ms3 Selection Permitted - Augmentin 875-125 mg Oral Tablet - take 1 tablet ORAL route every 12 hours for 10 days; 20 tablet; Refills: 0, ms3 Product Selection Permitted Signatures: Dispatcher [employer] Raleigh Gracia MD MD rn Able, Lacie, RN RN lg3 Marty Valdes DO DO ms3 Valerie Colunga, RN RN vc1 Katina Spears, RN RN db Flor Salgado, RN RN kj2
--- NOTE | 2024-02-27 07:39 | ER ---
Nurse's Notes [facility] Name: Jay Oconnor Age: 23 yrs Sex: Male : 2000 Arrival Date: 02/27/2024 Time: 04:49 Bed 13 Private MD: Diagnosis: Vomiting;Diarrhea, unspecified;Infectious gastroenteritis and colitis, unspecified Presentation: 02/26 05:00 Chief complaint: EMS states: ABDOMINAL PAIN, NAUSEA, DIARRHEA. Coronavirus screen: At kj2 this time, the client does not indicate any symptoms associated with coronavirus-19. Ebola Screen: No symptoms or risks identified at this time. Initial Sepsis Screen: Does the patient meet any 2 criteria? No. Patient's initial sepsis screen is negative. Does the patient have a suspected source of infection? No. Patient's initial sepsis screen is negative. Risk Assessment: Do you want to hurt yourself or someone else? Patient reports no desire to harm self or others. Onset of symptoms was February 27, 2024. 05:00 Method Of Arrival: EMS: [facility] 2 05:00 Acuity: ANABELA 3 kj2 05:23 Care prior to arrival: Medication(s) given: zofran 4 mg. kj2 Triage Assessment: 05:00 Pain: Complains of pain in abdomen Pain currently is 10 out of 10 on a pain scale. kj2 05:00 General: Appears comfortable, slender, Behavior is cooperative. GI: Abdomen is flat. kj2 : No signs and/or symptoms were reported regarding the genitourinary system. Historical: - Allergies: 05:30 No Known Allergies; kj2 - PMHx: 05:30 scoliosis; kj2 06:02 Anxiety; kj2 - PSHx: 05:30 Tonsillectomy; kj2 - Immunization history:: Adult Immunizations unknown. - Infectious Disease History:: Denies. - Family history:: not pertinent. - Hospitalizations: : No recent hospitalization is reported. - Social history:: Smoking status: Patient reports the use of cigarette tobacco products, unknown amount Reported history of juuling and/or vaping. Screenin:[address] [facility] ED Fall Risk Assessment (Adult) History of falling in the last 3 months, kj2 including since admission No falls in past 3 months (0 pts) Confusion or Disorientation No (0 pts) Intoxicated or Sedated No (0 pts) Impaired Gait No (0 pts) Mobility Assist Device Used No (0 pt) Altered Elimination No (0 pt) Score/Fall Risk Level 0 - 2 = Low Risk Maintained a safe environment, Hourly rounding (assess needs \T\ fall precautionary measures) done. Abuse screen: Denies threats or abuse. Denies injuries from another. Nutritional screening: No deficits noted. Tuberculosis screening: No symptoms or risk factors identified. Assessment: 05:00 General: see triage assessment. kj2 05:34 GI: Reports nausea, vomiting, since 0400 this morning. : No signs and/or symptoms kj2 were reported regarding the genitourinary system. 06:07 Reassessment: Patient and/or family updated on plan of care and expected duration. Pain kj2 level reassessed. Patient is alert, oriented x 3, equal unlabored respirations, skin warm/dry/pink. 06:54 Reassessment: Patient appears in no apparent distress at this time. Patient and/or kj2 family updated on plan of care and expected duration. Pain level reassessed. Patient is alert, oriented x 3, equal unlabored respirations, skin warm/dry/pink. 07:55 Reassessment: Patient appears in no apparent distress at this time. Patient and/or db family updated on plan of care and expected duration. Pain level reassessed. Patient is alert, oriented x 3, equal unlabored respirations, skin warm/dry/pink. General: Appears in no apparent distress. comfortable, Behavior is calm, cooperative. Neuro: Level of Consciousness is awake, alert, obeys commands, Oriented to person, place, time, situation. Respiratory: Airway is patent Respiratory effort is even, unlabored, Respiratory pattern is regular, symmetrical. GI: Abd is soft. 08:11 Reassessment: Patient appears in no apparent distress at this time. Patient and/or db family updated on plan of care and expected duration. Pain level reassessed. Patient is alert, oriented x 3, equal unlabored respirations, skin warm/dry/pink. Patient states feeling better. Patient states symptoms have improved. Vital Signs: 05:00 BP 122 / 96; Pulse 97; Resp 18; Temp 98; Pulse Ox 100% on R/A; Weight 54.43 kg; Height kj2 5 ft. 10 in. ; 06:06 BP 132 / 74; Pulse 93; Resp 20; Pulse Ox 100% ; kj2 06:54 BP 140 / 87; Pulse 81; Resp 16; Pulse Ox 99% on R/A; kj2 08:11 BP 128 / 74; Pulse 82; Resp 16; Pulse Ox 100% on R/A; db 05:00 Body Mass Index 17.22 (54.43 kg, 177.8 cm) kj2 ED Course: 05:00 Maintain EMS IV. Dressing intact. Good blood return noted. Site clean \T\ dry. Gauge \T\ kj 2 site: 20guage left AC. Flushed with 10 mL NS. 05:00 Patient has correct armband on for positive identification. Call light in reach. Side kj2 rails up X 1. Adult w/ patient. Provided Education on: call light. 05:02 Patient arrived in ED. vk 05:03 Raleigh Moreira MD is Attending Physician. rn 05:09 Flor Salgado RN is Primary Nurse. kj2 05:21 CBC with Diff Sent. lg3 05:21 CMP Sent. lg3 05:21 Lipase Sent. lg3 05:23 Triage completed. kj2 05:29 Arm band placed on Patient placed in an exam room, on a stretcher. kj2 05:42 No provider procedures requiring assistance completed. kj2 06:06 Assisted to bathroom. kj2 06:37 CT Abd/Pelvis - IV Contrast Only In Process Unspecified. EDMS 07:08 Attending Physician role handed off by Raleigh Moreira MD ms3 07:08 Marty Valdes DO is Attending Physician. ms3 07:37 Buddy Gagnon DO is Referral Physician. ms3 08:11 IV discontinued, intact, bleeding controlled, No redness/swelling at site. db 08:11 Pulse ox on. NIBP on. Warm blanket given. Pillow given. db Administered Medications: 05:21 Drug: Droperidol IVP 1.25 mg IVP once Route: IVP; Site: left antecubital; lg3 06:23 Follow up: Response: No adverse reaction kj2 07:50 Drug: Potassium PO Effervescent Tablet 50 mEq PO once; dissolve in 4 ounces of water or db juice Route: PO; 08:13 Follow up: Response: No adverse reaction db Medication: 05:30 VIS not applicable for this client. kj2 Outcome: 07:38 Discharge ordered by . ms3 08:11 Discharged to home ambulatory, with family, db 08:11 Condition: stable 08:11 Discharge instructions given to patient, family, Instructed on discharge instructions, follow up and referral plans. Prescriptions given X 3, 08:13 Patient left the ED. db Signatures: Dispatcher [employer] EDMS Raleigh Moreira MD MD rn Able, Lacie RN RN 3 Marty Valdes DO DO ms3 Katina Spears RN RN Maria Eugenia Pacheco Krystal, RN RN kj2 Corrections: (The following items were deleted from the chart) 07:56 07:55 Neuro: Level of Consciousness is awake, alert, obeys commands, Oriented to db person, place, time, situation, db
[2024-02-27] MEDS ORDERED: POTASSIUM 25 MEQ EFFERV TAB ONE (07:50)
[2024-02-27 09:17] VITALS: TEMP 98
[2024-02-27 09:20] VITALS: BP 128/74; O2SAT 100
== END 2024-02-27 08:13 | disposition home or self-care (01) ==
LOC: ER 04:49
DX: A09 Infectious gastroenteritis and colitis, unspecified (principal); Z72.0 Tobacco use
CPT/HCPCS: 85025; 36415; 83690; 80053; 74177; Q9967; J1790; 96374; 99284